=== PATIENT | female | born 1935 | race Caucasian/White ===

== ENCOUNTER 2016-06-26 05:55 | Day surgery (SDC) | payer OTHER ==
[~2016-06-26] VITALS: Ht 127 cm; Wt 48.3 kg
[~2016-06-26 05:55] MED LIST: ASPI1TAB73 PO; BENZ1CAP8 PO; CELE20TA PO; FURO1TAB62 PO; LEVO100T5 PO; LISI-519 PO; LOVA40TA PO; METO25TA3 PO; MIRT1TAB PO; POTA10CA PO
[2016-06-26] MEDS ORDERED: LACTATED RINGER'S 1000 ML IV SCH (06:15)
[2016-06-26] MEDS ORDERED: POVIDONE IODINE 5% (ANTISEPSIS KIT) 4 APPLICATIONS EACH NARE SCH (06:15)
[2016-06-26] MEDS ORDERED: NS 1000 ML IV SCH (06:15)
[2016-06-26] MEDS ORDERED: Hold AM Insulin & AM Hypoglycemic medications in diabetic patients XX PRN (06:15)
[2016-06-26] MEDS ORDERED: CHLORHEXIDINE GLUCONATE 2 % 1 PACK (2 CLOTHS) TOP SCH (06:15)
[2016-06-26] MEDS ORDERED: INSULIN HUMAN REGULAR 1,000 UNITS/10 ML VIAL SQ PRN (06:15)
[2016-06-26] MEDS ORDERED: METOPROLOL TARTRATE 25 MG TAB PO PRN (06:15)
[2016-06-26] MEDS ORDERED: MUPIROCIN 2% OINT 1 APPLIC/GM SYR NASAL SCH (06:15)
[2016-06-26] MEDS ORDERED: ceFAZolin 2 GM PREMIX 50 ML IV SCH (06:15)
[2016-06-26] MEDS ORDERED: SODIUM CHLORID 0.9% 500 ML IV SCH (06:15)
[2016-06-26] MEDS ORDERED: NO Heparin, Lovenox, Coumadin at least 12 hours prior to procedure. XX PRN (06:15)
[2016-06-26 06:44] VITALS: BP 128/84; PULSE 67; RESP 18; TEMP 98.2; O2SAT 100
[2016-06-26 06:48] LABS: AUTOMATED NEUTROPHIL # 3.5 TH/MM3 (1.8-7.7); BASOPHIL # 0.2 TH/MM3 (0-0.2); BASOPHIL % 3.4 % (0.0-2.0); EOSINOPHIL # 0.2 TH/MM3 (0-0.4); EOSINOPHIL % 3.2 % (0.0-4.0); HEMATOCRIT 43.1 % (35.0-46.0); HEMO FLAGS DIFF FINAL; LYMPHOCYTE # 1.7 TH/MM3 (1.0-4.8); MEAN CELL VOLUME 93.8 FL (80.0-100.0); MEAN CORPUSCULAR HGB CONC 33.1 % (32.0-36.0); MONO % 14.7 % (0.0-8.0); NEUT % 52.7 % (16.0-70.0); PLATELET COUNT 216 TH/MM3 (150-450); RED BLOOD COUNT 4.59 MIL/MM3 (4.00-5.30); RED CELL DISTRIBUTION WIDTH 15.5 % (11.6-17.2); WHITE BLOOD COUNT 6.6 TH/MM3 (4.0-11.0)
[2016-06-26] MEDS ORDERED: ZOFR4TAB PO (06:57)
[2016-06-26] MEDS ORDERED: BENZ100 PO (06:57)
[2016-06-26] MEDS ORDERED: SACU1TAB PO (06:57)
[2016-06-26] MEDS ORDERED: FLUT50SP EACH NARE (06:57)
[2016-06-26 07:02] LABS: APTT (PATIENT) 30.2 SEC (24.3-30.1); INTERNATIONAL NORMALIZED RATIO 1.1 RATIO; PROTHROMBIN TIME - PATIENT 12.4 SEC (9.8-11.6)
[2016-06-26 07:06] LABS: BICARBONATE 32.2 MEQ/L (21.0-32.0); POTASSIUM 3.5 MEQ/L (3.5-5.1)
[2016-06-26] MEDS ORDERED: VANCOMYCIN HCL 1000 MG VIAL ONE (07:08)
[2016-06-26] MEDS ORDERED: SODIUM CHLOR 0.9% 250 ML INJ 250 ML ONE (07:09)
[2016-06-26] MEDS ORDERED: ISOPROTERENOL HCL 1 MG/5 ML AMP ONE (07:39)
[2016-06-26] MEDS ORDERED: VANCOMYCIN 1000 MG/NS 250 ML IV SCH ×2 (08:15)
[2016-06-26] MEDS ORDERED: LIDOCAINE HCL 2% 50 ML VIAL ONE (08:19)
[2016-06-26] MEDS ORDERED: VANCOMYCIN 500 MG VIAL ONE (08:19)
[2016-06-26] MEDS ORDERED: PROPOFOL 200 MG/20 ML AMP IV ONE (10:00)
[2016-06-26] MEDS ORDERED: IOHEXOL 350 MG/ML 50 ML BTL (for EPS) OTHER ONE (10:00)
[2016-06-26] MEDS ORDERED: BACITRACIN OINT 0.9 GM PKT TOP ONE (12:00)
[2016-06-26] MEDS ORDERED: SODIUM CHLOR 0.9% 250 ML INJ 250 ML IV PRN (12:00)
[2016-06-26] MEDS ORDERED: METOCLOPRAMIDE HCL 10 MG/2 ML VIAL IV PRN (12:00)
[2016-06-26] MEDS ORDERED: LORazepam 2 MG/ML VIAL IV PRN (12:00)
[2016-06-26] MEDS ORDERED: ATROPINE SULFATE 1 MG/ML VIAL IV PRN (12:00)
[2016-06-26] MEDS ORDERED: SODIUM CHLORIDE 0.9% FLUSH 5 ML FLUSH IVF PRN (12:00)
[2016-06-26] MEDS ORDERED: ONDANSETRON ODT 4 MG TAB PO PRN (12:00)
[2016-06-26] MEDS ORDERED: oxyCODONE/ACETAMINOPHEN 5 MG/325 MG TAB PO PRN (12:00)
[2016-06-26] MEDS ORDERED: BENZONATATE 100 MG CAP PO PRN (12:00)
[2016-06-26] MEDS ORDERED: LIDOCAINE HCL 1% 50 ML VIAL INFIL PRN (12:00)
[2016-06-26] MEDS ORDERED: ONDANSETRON HCL 4 MG/2 ML VIAL IV PRN (12:00)
--- NOTE | 2016-06-26 12:31 | MA ---
cc: SELENA BELL M.D. DATE: 06/26/2016 PROCEDURE electrophysiology study and CS cannulation, repeat electrophysiology study on Isuprel infusion. INDICATION Mrs. Schroeder is a 80-year-old female with congestive heart failure, cardiomyopathy, to undergo electrophysiology study and possible biventricular pacer defibrillator insertion for sudden cardiac prevention and resynchronization therapy. The risks, the nature and the benefit of the procedure are clearly stated to her. The risks include pneumothorax, cardiac perforation, stroke and even . She understood and agreed to proceed. PROCEDURE After written informed consent was obtained, the patient was brought to the EP lab where she was prepped and draped in the usual sterile fashion. Conscious sedation was initiated and maintained throughout the procedure by anesthesiologist. Once sedation was verified, the right inguinal area was anesthetized with 2% Xylocaine. Using modified Seldinger technique, the right femoral vein was cannulated on four occasions, four guidewires were advanced. Over the wire 3, 5 and a 6-Montenegrin Hemaquet were advanced. Then under fluoroscopic guidance through the 5 and 6 Montenegrin Hemaquet, 4.5-Montenegrin Zachariah curved quadripolar electrophysiology catheter were advanced and placed around the His, upper right atrium, coronary sinus and right ventricular apex. Basic interval was measured, they were within normal limits. At this point atrial pacing protocol was performed. Atrial pacing protocol consists of incremental atrial pacing as well as program stimulation with 410 cycle length and up to one excess stimuli delivered. No tachyarrhythmia was induced. Then ventricular pacing protocol was performed. There was VA conduction, ventricular pacing protocol consists of incremental ventricular pacing as well as program stimulation with 410 cycle length and up to three excess stimuli delivered. No tachyarrhythmia was induced. Pacing from the coronary sinus showed no pre-excitation. Then Isuprel infusion was initiated, atrial and ventricular pacing protocol was repeated again, no tachyarrhythmia was induced. At that point because of low blood pressure, the procedure was complete. All catheters were removed. The patient is going to be kept on the table because of congestive heart failure class III, wide QRS, EF 25% on optimal medical therapy for over 3 months. The patient will be kept on the table and a biventricular pacer defibrillator will be implanted for sudden prevention and resynchronization therapy. No incident report. The patient tolerated the procedure. Blood loss was minimal. 1. Electrocardiogram. At baseline the patient was in sinus. Postprocedure electrocardiogram was unchanged. 2. Basic interval. Base cycle length was 840, AH at 130 and HV around 70 milliseconds. 3. Atrial pacing protocol. Wenckebach of the node was around 240. ERP of 600-280 milliseconds. No tachyarrhythmia was induced. 4. Ventricular pacing protocol. There was VA conduction. No tachyarrhythmia was induced. CONCLUSION Negative electrophysiology study for supraventricular tachyarrhythmia, COMMENT AND RECOMMENDATION As mentioned before the patient is going to be kept on the table. Biventricular pacer defibrillator will be implanted for sudden prevention, primary prevention and resynchronization therapy. MD MONROE Britt/DILLON /11:54 AM /12:20 PM
--- NOTE | 2016-06-26 13:24 | RADRPT ---
EXAM DATE/TIME: 06/26/2016 12:37 [place] COMPARISON: CHEST SINGLE AP, April 19, 2016, 15:11. INDICATIONS : Post Pacemaker MEDICAL HISTORY : Hypertension. SURGICAL HISTORY : None. ENCOUNTER: Initial ACUITY: 1 day PAIN SCORE: 8/10 LOCATION: Bilateral chest FINDINGS: Single view chest demonstrates interval placement of a dual-lead pacemaker plus AICD leads. The heart is moderately enlarged. Lungs are free of significant congestion. There is no pneumothorax. CONCLUSION: Status post placement of AICD/pacemaker No evidence of pneumothorax or acute congestion. Danilo Short MD on June 26, 2016 at 13:20 Board Certified Radiologist. This report was verified electronically.
[2016-06-26] MEDS: FUROSEMIDE 40 MG TAB PO SCH (13:52)
[2016-06-26] MEDS: PRAVASTATIN SOD 40 MG TAB PO SCH (13:52)
--- NOTE | 2016-06-26 14:07 | MP ---
cc: EUGENIA STEVEN M.D., HANSCY M.D. DATE OF SURGERY: 06/26/2016 PROCEDURE Biventricular pacer defibrillator insertion and device testing. INDICATION Mrs. Schroeder is an 80-year-old female with congestive heart failure, cardiomyopathy, ejection fraction around 20-25%, cardiomyopathy, wide QRS, on optimal medical treatment for over three months and negative electrophysiology study to undergo biventricular pacer defibrillator insertion for resynchronization therapy and sudden primary prevention. The risks, the nature and the benefit of the procedure were clearly stated to her. The risks include pneumothorax, cardiac perforation, stroke and even . She understood and agreed to proceed. DETAILS OF PROCEDURE As written informed consent was obtained prior to electrophysiology study, the patient was kept on the table where she was prepped and draped in the usual sterile fashion. Conscious sedation was initiated and maintained throughout the procedure by the anesthesiologist. Once sedation was verified, the left infraclavicular area was anesthetized with 2% Xylocaine. Using modified Seldinger technique, the left subclavian vein was cannulated on three occasions and three guidewires were advanced. Then using a #11 blade scalpel, a 3 cm incision was made two fingerbreadths below the left clavicle. This incision was taken down to the fascial layer using Bovie cautery and blunt dissection. Into the inferior medial direction, a device pocket was dissected. Then the wire was dissected into the pocket. A 2-0 Vicryl suture was placed around the wire to prevent back bleeding. At this point over the lateral wire an 8-Taiwanese dilator and introducer was advanced. As the dilator and wire were removed, an active fixation right ventricular pacing and sensing defibrillatory lead was advanced. After adequate pacing and sensing thresholds were obtained, the lead was secured in the pocket using 2-0 Ethibond suture. Then over the medial wire, a 7-Taiwanese dilator and introducer was advanced. As the dilator and wire were removed, an active fixation right atrial pacing and sensing lead was advanced. After adequate pacing and sensing thresholds were obtained, the lead was secured in the pocket using 2-0 Ethibond suture. Then over the remaining wire, a 9-Taiwanese dilator and introducer was advanced. As the dilator and wire were removed, a CS cannulation sheath was advanced. Through the sheath a quadripolar steerable catheter was advanced. After multiple attempts the coronary sinus was cannulated. CS venography showed an adequate posterolateral branch. Using a Prowater wire the posterolateral branch was cannulated and the lead was advanced over the wire. After adequate pacing and sensing thresholds were obtained, the peel-away introducer was removed and the cutter introducer was removed and the lead was secured in the pocket using 2-0 Ethibond suture. At that point the pocket was copiously irrigated using antibiotic solution. The leads were connected to the generator and placed into the pocket. I did proceed with device testing. Initial induction consisted of T-wave shock which induced ventricular fibrillation which was adequately detected and treated by the ICD generator delivering a 20 joule defibrillatory shock converting the patient back into sinus rhythm. Shocking impedance 37 ohms, charge time 4 seconds. At that point NIPS was complete. I did proceed with wound closure. The deep fascial layer was approximated using 2-0 Vicryl suture in a continuous fashion. The subcutaneous layer was approximated using 2-0 Vicryl suture in a continuous fashion. The subcuticular layer was approximated using 2-0 Vicryl suture in a continuous fashion. Dermabond adhesive was applied to the wound followed by a sterile pressure dressing. There was no complication. The patient tolerated the procedure. Blood loss minimal. IMPLANTED HARDWARE The implanted biventricular pacer defibrillator is a Biotronik model 362831, serial number [id number]. The right atrial pacing and sensing lead is a Biotronik model 157820, serial number [id number]. The right ventricular pacing sensing defibrillatory lead is a Biotronik model 834253, serial number [id number]. The left ventricular pacing and sensing lead is a Medtronic model 4398-88, serial number [id number]. THRESHOLDS The right atrial pacing threshold in the bipolar mode was 1.8 volts at 0.5 milliseconds, lead impedance 520 ohms, P-wave at 1.5 millivolts. The right ventricular pacing threshold in the bipolar mode was 0.5 volts at 0.5 milliseconds, lead impedance 250 ohms, R-wave at 22.6 millivolts. The left ventricular pacing threshold in the bipolar mode was 2.1 volts at 0.5 milliseconds, lead impedance 230 ohms. The right ventricular defibrillatory threshold was less than or equal to 20 joules. Shocking impedance 37 ohms, charge time 4 seconds. SETTINGS The device in set in a DDD 60, upper limit 120 beats per minute. AV delay and paced at 160 and sensed at 140, LV first by 40 milliseconds. The defibrillatory portion is for two zones. One zone for ventricular tachycardia between 160 and 240 beats per minute. Initial therapy consists of one burst of ATP, one RAMP, 81%, 10 pause, 10 milliseconds decremental, followed by 20 then 30 and all subsequent shocks at 40 joule defibrillatory shock. The second zone is for ventricular fibrillation above 240 beats per minute, the first therapy at 30 and all subsequent shocks at 40 joule defibrillatory shock. CONCLUSIONS Successful biventricular pacer defibrillator insertion and device testing. COMMENT/RECOMMENDATION The patient will be transferred to the telemetry unit. She will be observed and once stable can be discharged home. Otf Aranda MD HS/TALYA /11:46 AM /1:40 PM
[2016-06-26] MEDS: ceFAZolin 2 GM PREMIX 50 ML IV SCH ×2 (15:38→23:54)
[2016-06-26] MEDS: oxyCODONE/ACETAMINOPHEN 5 MG/325 MG TAB PO PRN ×2 (16:10→21:57)
[2016-06-26 21:00] VITALS: PULSE 70
[2016-06-26] MEDS ORDERED: SACUBITRIL/VALSARTAN 24 MG-26 MG TAB PO SCH (21:00)
[2016-06-26] MEDS: SODIUM CHLORIDE 0.9% FLUSH 5 ML FLUSH IVF SCH (21:57)
[2016-06-26] MEDS: METOPROLOL TARTRATE 25 MG TAB PO SCH (21:57)
[2016-06-26 22:00] VITALS: PULSE 68
[2016-06-26] MEDS: SACUBITRIL/VALSARTAN 49 MG-51 MG TAB PO SCH (22:12)
[2016-06-26 23:00] VITALS: PULSE 64
[2016-06-27] VITALS (11 sets, daily range): BP systolic 95–113; BP diastolic 44–63; PULSE 60–68; RESP 16–20; TEMP 97.5–98.8; O2SAT 94–97
[2016-06-27] MEDS ORDERED: LEVOTHYROXINE SODIUM 100 MCG TAB PO SCH (06:00)
[2016-06-27 06:11] LABS: APTT (PATIENT) 30.4 SEC (24.3-30.1); INTERNATIONAL NORMALIZED RATIO 1.2 RATIO; PROTHROMBIN TIME - PATIENT 12.9 SEC (9.8-11.6)
[2016-06-27] MEDS: oxyCODONE/ACETAMINOPHEN 5 MG/325 MG TAB PO PRN ×2 (06:19→13:34)
[2016-06-27] MEDS: ceFAZolin 2 GM PREMIX 50 ML IV SCH (08:47)
[2016-06-27] MEDS: FUROSEMIDE 40 MG TAB PO SCH (08:47)
[2016-06-27] MEDS: PRAVASTATIN SOD 40 MG TAB PO SCH (08:47)
[2016-06-27] MEDS: METOPROLOL TARTRATE 25 MG TAB PO SCH (08:48)
[2016-06-27] MEDS: SODIUM CHLORIDE 0.9% FLUSH 5 ML FLUSH IVF SCH (08:49)
[2016-06-27] MEDS ORDERED: ASPIRIN EC 81 MG TABEC PO SCH (09:00)
[2016-06-27] MEDS ORDERED: POTASSIUM CHLORIDE 10 MEQ CAP PO SCH (09:00)
[2016-06-27] MEDS: SACUBITRIL/VALSARTAN 49 MG-51 MG TAB PO SCH (09:00)
--- NOTE | 2016-06-27 15:18 | HHI.PR ---
Subjective Remarks Feeling ok Objective Vital Signs Date Time Temp Pulse Resp B/P Pulse Ox O2 Delivery O2 Flow Rate FiO2 06/27/16 08:02 97.5 66 17 113/63 95 06/27/16 08:00 68 06/27/16 07:30 97.5 66 16 113/63 95 06/27/16 07:00 66 06/27/16 06:00 65 06/27/16 05:00 67 06/27/16 04:00 64 06/27/16 04:00 98.6 64 17 95/44 94 06/27/16 04:00 98.6 64 20 95/46 94 06/27/16 03:00 65 06/27/16 02:00 62 06/27/16 01:00 64 06/27/16 00:00 98.8 60 18 111/62 96 06/27/16 00:00 60 06/27/16 00:00 98.8 60 18 111/62 97 06/26/16 23:00 64 06/26/16 22:00 68 06/26/16 21:00 70 I/O 06/26/16 06/26/16 06/26/16 06/27/16 06/27/16 06/27/16 07:00 15:00 23:00 07:00 15:00 23:00 Intake Total 300 ml Output Total 500 ml Balance -200 ml Intake Oral 250 ml IV Total 50 ml Output Urine Total 500 ml # Bowel Movements 0 Result Diagram: 06/26/16 0630 06/26/16 0630 Imaging Alert, fully oriented Lungs: ventilated Heart: S1, S2 regular, no gallop Abdomen: soft, no mass Ext: no edema Clean left infraclavicular surgical wound Last Impressions Chest X-Ray 06/26/16 0000 Signed Impressions: Service Date/Time: Sunday, June 26, 2016 12:37 - CONCLUSION: Status post placement of AICD/pacemaker No evidence of pneumothorax or acute congestion. Danilo Short MD Current Medications Medications (Trade) Dose Ordered Sig/Onofre Route Start Time Stop Time Status Last Admin Miscellaneous Information Hold AM Insulin & ... UNSCH PRN XX 06/26/16 06:15 06/30/16 06:14 Miscellaneous Information NO Heparin, Loven... UNSCH PRN XX 06/26/16 06:15 06/30/16 06:14 (NS 1000 ml Inj) 1,000 ml @ 30 mls/hr Q24H IV 06/26/16 06:15 (Percocet 5-325 Mg) 1 tab Q4H PRN PO 06/26/16 12:00 06/27/16 13:34 (Percocet 5-325 Mg) 2 tab Q4H PRN PO 06/26/16 12:00 (Atropine Inj) 0.5 mg UNSCH PRN IV 06/26/16 12:00 (Reglan Inj) 10 mg Q4H PRN IV 06/26/16 12:00 (Zofran Inj) 4 mg Q4H PRN IV 06/26/16 12:00 (NS Flush) 2 ml BID IVF 06/26/16 21:00 06/26/16 21:57 (NS Flush) 2 ml UNSCH PRN IVF 06/26/16 12:00 (Ecotrin Ec) 81 mg DAILY PO 06/27/16 09:00 06/27/16 08:47 (Tessalon) 100 mg TID PRN PO 06/26/16 12:00 (Lasix) 40 mg DAILY PO 06/26/16 12:00 06/27/16 08:47 (Synthroid) 100 mcg DAILY@0600 PO 06/27/16 06:00 06/27/16 06:18 (Pravachol) 40 mg DAILY PO 06/26/16 12:00 06/27/16 08:47 (Lopressor) 25 mg BID PO 06/26/16 21:00 06/27/16 08:48 (KCl) 10 meq DAILY PO 06/27/16 09:00 06/27/16 08:47 (Zofran Odt) 4 mg Q6HR PRN PO 06/26/16 12:00 (Entresto 49-51 Mg) 1 tab BID PO 06/26/16 21:00 06/26/16 22:12 Assessment and Plan Problem List: (1) Chronic systolic CHF (congestive heart failure) Status: Acute Plan: On optimal medical management (2) Hypertension Status: Acute Plan: SBP 113 (3) Syncope Status: Acute Plan: No new episode reported (4) Biventricular automatic implantable cardioverter defibrillator in situ Status: Acute Plan: Device well functioning clean surgical wound Can be DH Follow up as scheduled Otf Aranda MD Jun 27, 2016 15:18
[2016-06-27] MEDS ORDERED: METO50TA PO (15:22)
[2016-06-27] MEDS ORDERED: NORC5TAB PO (15:22)
[2016-06-27] MEDS ORDERED: CEPH-460 PO (15:22)
--- NOTE | 2016-06-27 17:04 | EKG ---
Date Performed: 06/26/2016 Time Performed: 06:52:46 PTAGE: 80 years EKG: Sinus rhythm with PVC(s) Left axis deviation Left bundle branch block Abnormal ECG PREVIOUS TRACING : 04/19/2016 15.21.02 DOCTOR: Neri Frost Interpretating Date/Time 06/27/2016 17:04:26
--- NOTE | 2016-06-27 17:08 | EKG ---
Date Performed: 06/26/2016 Time Performed: 16:27:28 PTAGE: 80 years EKG: Sinus rhythm with PVC(s) Left axis deviation. Left bundle branch block. Prolonged corrected QT interval Abnormal ECG PREVIOUS TRACING : 06/26/2016 06.52.46 DOCTOR: Neri Frost Interpretating Date/Time 06/27/2016 17:06:42
--- NOTE | 2016-06-27 17:08 | EKG ---
Date Performed: 06/27/2016 Time Performed: 07:32:50 PTAGE: 80 years EKG: Demand pacing Pacemaker rhythm - no further analysis Prolonged corrected QT interval Abnorm al ECG PREVIOUS TRACING : 06/26/2016 16.27 DOCTOR: Neri Frost Interpretating Date/Time 06/27/2016 17:06:56
== END 2016-06-27 16:47 | disposition home or self-care (01) ==
LOC: HDOC 05:55 → HDIC 05:55 → HCIS 21:04 → HDOC 06-27 16:47
PROVIDERS: ATTEND Internal Medicine Interventional Cardiology
DX: I11.0 Hypertensive heart disease with heart failure (principal); I50.9 Heart failure, unspecified; I42.9 Cardiomyopathy, unspecified; I25.10 Atherosclerotic heart disease of native coronary artery without angina pectoris; I44.7 Left bundle-branch block, unspecified; I34.0 Nonrheumatic mitral (valve) insufficiency; E03.9 Hypothyroidism, unspecified; Z79.82 Long term (current) use of aspirin
CPT/HCPCS: 33225; 33249; 71010; 80048; 84703; 85025; 85610; 85730; 86850; 86900; 86901; 93005; 93620; 93623; C1730; C1769; C1779; C1882; C1895; C1900; J0690; J3010; J3370; J7050; Q9967

== ENCOUNTER 2016-09-16 14:52 | Inpatient (IN) | payer OTHER, MEDICARE ==
[2016-09-16] VITALS (8 sets, daily range): BP systolic 112–136; BP diastolic 44–75; PULSE 61–74; RESP 16–27; TEMP 98.2–100.6; O2SAT 95–97
[~2016-09-16] VITALS: Ht 157.5 cm; Wt 54.2 kg
[~2016-09-16 14:52] MED LIST changes: +BENZ100 PO; -BENZ1CAP8 PO; -CELE20TA PO; +CEPH-460 PO; +FLUT50SP EACH NARE; -LISI-519 PO; -METO25TA3 PO; +METO50TA PO; -MIRT1TAB PO; +NORC5TAB PO; +SACU1TAB PO; +ZOFR4TAB PO
[2016-09-16] MEDS ORDERED: SODIUM CHLOR 0.9% 1000 ML INJ 1,000 ML IV ONE ×2 (15:03)
[2016-09-16] MEDS ORDERED: SODIUM CHLOR 0.9% 1000 ML INJ 100 ML IV ONE (15:03)
[2016-09-16 15:32] LABS: AUTOMATED NEUTROPHIL # 8.8 TH/MM3 (1.8-7.7); BASOPHIL # 0.1 TH/MM3 (0-0.2); BASOPHIL % 0.5 % (0.0-2.0); HEMATOCRIT 39.7 % (35.0-46.0); LYMPH % 7.9 % (9.0-44.0); MEAN CELL VOLUME 95.7 FL (80.0-100.0); MEAN CORPUSCULAR HEMOGLOBIN 32.3 PG (27.0-34.0); MEAN CORPUSCULAR HGB CONC 33.8 % (32.0-36.0); NEUT % 71.6 % (16.0-70.0); PLATELET COUNT 174 TH/MM3 (150-450); RED BLOOD COUNT 4.15 MIL/MM3 (4.00-5.30); RED CELL DISTRIBUTION WIDTH 16.9 % (11.6-17.2); WHITE BLOOD COUNT 12.3 TH/MM3 (4.0-11.0)
[2016-09-16 15:34] LABS: HEMO FLAGS AUTO DIFF
[2016-09-16 15:37] LABS: BACTERIA, URINE RARE /hpf; BLOOD, URINE NEG (NEG); GLUCOSE,URINE NEG (NEG); HYALINE CAST, URINE 2 /lpf (RARE); KETONE, URINE NEG (NEG); MUCUS URINE FEW /lpf (OCC); NITRITE,URINE NEG (NEG); PH, URINE 5.5 (5.0-8.5); URINE COLOR YELLOW (YELLW/STRAW)
[2016-09-16 15:38] LABS: COMMENT (UR) CATH-CULTURE IND; CULTURE IF INDICATED CATH CULTURE IND
--- NOTE | 2016-09-16 16:04 | PD ---
HPI Chief Complaint: General Weakness Time Seen by Provider: 14:57 Travel History International Travel<30 days: No Contact w/Intl Traveler<30days: No Traveled to known affect area: No History of Present Illness HPI 81-year-old female came to the emergency room with history of generalized weakness and not feeling well. Upon asking patient said she has not been feeling well for past 3-4 days. She was brought in by EMS and her daughter called 911. Upon arrival her temperature was 100.8. She says she has been vomiting but no diarrhea. However she did not vomit today or yesterday. Her appetite has been diminished. She denied of any pain anywhere. No history of cough. Vital signs otherwise was within normal limits. [facility] Past Medical History Narrative Medical List of her past medical, surgical, social and family history was reviewed from the nursing note. Anxiety: Yes Depression: Yes Heart Rhythm Problems: No Cancer: No Cardiac Catheterization: Yes (3 times) Cardiovascular Problems: Yes (HTN) High Cholesterol: Yes Chest Pain: No Congestive Heart Failure: Yes Cerebrovascular Accident: Yes (LBB, CHF) Diabetes: No Diminished Hearing: No Endocrine: Yes Gastrointestinal Disorders: No GERD: Yes Glaucoma: No Genitourinary: No Hepatitis: No Hiatal Hernia: Yes Hypertension: Yes Immune Disorder: No Musculoskeletal: No Neurologic: No Psychiatric: Yes Reproductive: No Respiratory: No Integumentary: No Thyroid Disease: Yes (HYPOTHYROID) Tetanus Vaccination: Unknown Influenza Vaccination: Yes ?: Not Menopausal: Yes : 11 Para: 11 Past Surgical History AICD: Yes Cholecystectomy: Yes Eye Surgery: Yes (LEFT CATARACT REMOVED) Gynecologic Surgery: Yes (HYSTERECTOMY) Hysterectomy: Yes Neurologic Surgery: No Pacemaker: Yes Other Surgery: Yes (SHOULDER AND KNEE SURGERIES) Social History Alcohol Use: No Tobacco Use: No (QUIT IN 1988) Substance Use: No Allergies-Medications (Allergen,Severity, Reaction): Coded Allergies: Flounder (Unverified Allergy, Mild, 04/19/16) Uncoded Allergies: FISH/FLOUNDER (Allergy, Severe, SYNCOPE, 07/07/08) Comments List of her allergies reviewed from the nursing note. Reported Meds & Prescriptions Reported Meds & Active Scripts Active Metoprolol Tartrate 50 Mg Tab 50 Mg PO BID Reported Zofran (Ondansetron HCl) 4 Mg Tab 4 Mg PO Q6HR PRN Tessalon Perles (Benzonatate) 100 Mg Cap 100 Mg PO TID PRN Fluticasone Nasal [place] 50 Mcg/Act Naspr 50 Mcg EACH NARE DAILY 50 mcg/spray Entresto (Sacubitril-Valsartan) 24-26 Mg Tab 1 Tab PO BID Jolly Aspirin EC Low Dose (Aspirin) 81 Mg Tabdr 81 Mg PO DAILY Lasix (Furosemide) 20 Mg Tab 40 Mg PO DAILY Lovastatin 40 Mg Tab 40 Mg PO DAILY Potassium Chloride ER (Potassium Chloride) 10 Meq Cap 10 Meq PO DAILY Take with food Levothyroxine (Levothyroxine Sodium) 100 Mcg Tab 100 Mcg PO DAILY Narrative Medication List of her home medications reviewed from the nursing note. Review of Systems Except as stated in HPI: all other systems reviewed are Neg Physical Exam Narrative GENERAL: Awake, alert, elderly, moderate distress SKIN: Focused skin assessment warm/dry. HEAD: Atraumatic. Normocephalic. EYES: Pupils equal and round. No scleral icterus. No injection or drainage. ENT: No nasal bleeding or discharge. Dry mucous membrane NECK: Trachea midline. No JVD. CARDIOVASCULAR: Regular rate and rhythm. No murmur appreciated. RESPIRATORY: No accessory muscle use. Clear to auscultation. Breath sounds equal bilaterally. GASTROINTESTINAL: Abdomen soft, non-tender, nondistended. Hepatic and splenic margins not palpable. MUSCULOSKELETAL: No obvious deformities. No clubbing. No cyanosis. No edema. NEUROLOGICAL: Awake and alert. No obvious cranial nerve deficits. Motor grossly within normal limits. Normal speech. PSYCHIATRIC: Appropriate mood and affect; insight and judgment normal. Data Data Last Documented VS Vital Signs Date Time Temp Pulse Resp B/P Pulse Ox O2 Delivery O2 Flow Rate FiO2 09/16/16 20:00 74 16 121/75 97 09/16/16 18:30 Nasal Cannula 2 09/16/16 17:38 98.9 Orders Electrocardiogram (09/16/16 ) Complete Blood Count With Diff (09/16/16 15:03) Comprehensive Metabolic Panel (09/16/16 15:03) Lactic Acid Sepsis Protocol (09/16/16 15:03) Urinalysis - C+S If Indicated (09/16/16 15:03) Blood Culture (09/16/16 15:03) Chest, Single Ap (09/16/16 15:03) Blood Glucose (09/16/16 15:03) Ecg Monitoring (09/16/16 15:03) Iv Access Insert/Monitor (09/16/16 15:03) Oximetry (09/16/16 15:03) Oxygen Administration (09/16/16 15:03) Sodium Chlor 0.9% 1000 Ml Inj (Ns 1000 M (09/16/16 15:03) Sodium Chlor 0.9% 1000 Ml Inj (Ns 1000 M (09/16/16 15:03) Sodium Chlor 0.9% 1000 Ml Inj (Ns 1000 M (09/16/16 15:03) Urine Culture (09/16/16 15:17) Ceftriaxone Inj (Rocephin Inj) (09/16/16 16:15) Ct Abd/Pel W Iv Contrast(Rout) (09/16/16 ) Piperacil-Tazo 4.5 Gm Premix (Zosyn 4.5 (09/16/16 16:30) Iohexol 350 Inj (Omnipaque 350 Inj) (09/16/16 17:34) Vancomycin Inj (Vancomycin Inj) (09/16/16 18:30) Albuterol Neb (Albuterol Neb) (09/16/16 18:45) Admit Order (Ed Use Only) (09/16/16 20:00) Biliary Quant (W/O Cck) (09/16/16 ) Labs Laboratory Tests Test 09/16/16 09/16/16 09/16/16 15:10 15:15 15:17 Sodium Level 135 MEQ/L Potassium Level 4.1 MEQ/L Chloride Level 100 MEQ/L Carbon Dioxide Level 28.0 MEQ/L Anion Gap 7 MEQ/L Blood Urea Nitrogen 15 MG/DL Creatinine 0.82 MG/DL Estimat Glomerular Filtration 67 ML/MIN Rate Random Glucose 120 MG/DL Calcium Level 8.8 MG/DL Total Bilirubin 2.7 MG/DL Aspartate Amino Transf 53 U/L (AST/SGOT) Alanine Aminotransferase 65 U/L (ALT/SGPT) Alkaline Phosphatase 115 U/L Total Protein 6.6 GM/DL Albumin 3.2 GM/DL White Blood Count 12.3 TH/MM3 Red Blood Count 4.15 MIL/MM3 Hemoglobin 13.4 GM/DL Hematocrit 39.7 % Mean Corpuscular Volume 95.7 FL Mean Corpuscular Hemoglobin 32.3 PG Mean Corpuscular Hemoglobin 33.8 % Concent Red Cell Distribution Width 16.9 % Platelet Count 174 TH/MM3 Mean Platelet Volume 8.2 FL Neutrophils (%) (Auto) 71.6 % Lymphocytes (%) (Auto) 7.9 % Monocytes (%) (Auto) 20.0 % Eosinophils (%) (Auto) 0.0 % Basophils (%) (Auto) 0.5 % Neutrophils # (Auto) 8.8 TH/MM3 Lymphocytes # (Auto) 1.0 TH/MM3 Monocytes # (Auto) 2.5 TH/MM3 Eosinophils # (Auto) 0.0 TH/MM3 Basophils # (Auto) 0.1 TH/MM3 CBC Comment AUTO DIFF Differential Total Cells 100 Counted Neutrophils % (Manual) 70 % Band Neutrophils % 4 % Lymphocytes % 6 % Monocytes % 20 % Neutrophils # (Manual) 9.1 TH/MM3 Differential Comment FINAL DIFF MANUAL Toxic Vacuolation PRESENT Platelet Estimate NORMAL Platelet Morphology Comment ENLARGED Ovalocytes 1+ Lactic Acid Level 1.5 mmol/L Urine Color YELLOW Urine Turbidity CLEAR Urine pH 5.5 Urine Specific [place] 1.015 Urine Protein TRACE mg/dL Urine Glucose (UA) NEG mg/dL Urine Ketones NEG mg/dL Urine Occult Blood NEG Urine Nitrite NEG Urine Bilirubin NEG Urine Urobilinogen 2.0 MG/DL Urine Leukocyte Esterase TRACE Urine RBC 1 /hpf Urine WBC 4 /hpf Urine Bacteria RARE /hpf Urine Hyaline Casts 2 /lpf Urine Mucus FEW /lpf Microscopic Urinalysis Comment CATH-CULTURE IND MDM Medical Decision Making Medical Screen Exam Complete: Yes Emergency Medical Condition: Yes Medical Record Reviewed: Yes Interpretation(s) Twelve-lead EKG was reviewed by me. Paced rhythm. Heart rate of 66 bpm. Differential Diagnosis Pneumonia, UTI, sepsis Narrative Course 4:03 PM CBC is back and patient has slight leukocytosis. She has a UTI as well. Awaiting for the chemistry to come back. 6:29 PM patient's manual differential shows toxic granulocytes and vacuolated bodies suggesting possibly severe bacterial infection. I started this patient on IV Zosyn and vancomycin. She was given IV fluid as per sepsis protocol in the beginning. CAT scan of the abdomen was ordered which has been reported as dilated common bile duct as well as an inferior pole splenic infarct. I've placed a call out for the radio equipment repairer and the hospitalist for admission. 6:57 PM discussed the case with the radio equipment repairer Dr. Bartholomew and as per him a HIDA scan should be done since an MRCP cannot be done given patient's pacemaker status. He agreed that the patient should be admitted and to the ICU since there is a potential of her getting worse. He agreed with the antibiotic. I went and discussed this with the family. Patient has 3 daughters in the room currently. Patient has been coughing and as per them the coughing started just half an hour ago. She continues to look uncomfortable and in distress. My concern is that there is a chance she may potentially worsen hemodynamically and from respiratory standpoint. She does have history of congestive heart failure and she received fluid as per sepsis protocol. I discussed the case with the hospitalist who wanted the case to be run by the can filling machine operator and see if they would accept the case. Awaiting for the can filling machine operator to call back. 8 PM case was discussed with the can filling machine operator Dr. Juarez who has accepted the patient. Critical Care Narrative Aggregate critical care time was 45 minutes. Time to perform other separately billable procedures was not included in the critical care time. My time did not include minutes spent treating any other patients simultaneously or on activities that did not directly contribute to the patient's treatment. The services I provided to this patient were to treat and/or prevent clinically significant deterioration that could result in: Sepsis, sepsis protocol, possible cholangitis I provided critical care services requiring my management, as noted below: Chart data review, documentation time, medication orders and management, vital sign assessments/reviewing monitor data, ordering and reviewing lab tests, ordering and interpreting/reviewing x-rays and diagnostic studies, care of the patient and discussion of the patient with the admitting physicians. Procedures EKG Prior to Arrival: No Physician Communication Physician Communication Dr. Bartholomew, Dr. Juarez Diagnosis Primary Impression: Sepsis Qualified Code: A41.9 - Sepsis, due to unspecified organism Additional Impressions: UTI (urinary tract infection) Qualified Code: N39.0 - Urinary tract infection without hematuria, site unspecified questionable cholangitis Admitting Information Admitting Physician Requests: Narinder Rand MD Sep 16, 2016 16:04
[2016-09-16 16:06] LABS: BANDS 4 % (0-6); NEUTROPHIL # MANUAL DIFF 9.1 TH/MM3 (1.8-7.7); POLYS (SEG NEUTROPHILS) 70 % (16-70); TOXIC VACUOLATION PRESENT (NONE SEEN); WBC DIFF SAMPLE 100
[2016-09-16 16:07] LABS: OVALOCYTES 1+ (NORMAL)
[2016-09-16 16:09] LABS: PLATELET ESTIMATE SMEAR NORMAL (NORMAL); PLATELET MORPHOLOGY ENLARGED (NORMAL); SCAN/DIFF FINAL DIFF MANUAL
[2016-09-16 16:11] LABS: ALT (GPT) 65 U/L (10-53); ANION GAP 7 MEQ/L (5-15); AST (GOT) 53 U/L (15-37); BLOOD UREA NITROGEN 15 MG/DL (7-18); CHLORIDE 100 MEQ/L (98-107); GLOMERULAR FILTRATION RATE 67 ML/MIN (>89); POTASSIUM 4.1 MEQ/L (3.5-5.1); SODIUM (NA) 135 MEQ/L (136-145)
[2016-09-16 16:14] LABS: ALKALINE PHOSPHATASE 115 U/L (45-117); TOTAL BILIRUBIN ADULT 2.7 MG/DL (0.2-1.0)
[2016-09-16] MEDS ORDERED: cefTRIAXone INJ 1,000 MG in SODIUM CHLORIDE 0.9% INJ 100 ML IV ONE (16:15)
--- NOTE | 2016-09-16 16:20 | RADRPT ---
EXAM DATE/TIME: 09/16/2016 15:21 [facility] COMPARISON: CHEST SINGLE AP, June 26, 2016, 12:37. INDICATIONS : Cough and congestion for the past few days. MEDICAL HISTORY : Hypertension. SURGICAL HISTORY : Pacemaker. ENCOUNTER: Initial ACUITY: 3 days PAIN SCORE: 0/10 LOCATION: Bilateral chest FINDINGS: Moderate severity cardiomegaly similar to prior. The central bronchopulmonary markings remain fairly well delineated. There is elevation of the left hemidiaphragm. Pacer device and pacer/AICD leads i n place. CONCLUSION: No definite infiltrates seen. Increased prominence the elevation of the left hemidiaphragm. Stable cardiomegaly. John Quiles MD on September 16, 2016 at 16:17 Board Certified Radiologist. This report was verified electronically.
[2016-09-16] MEDS ORDERED: PIPERACIL-TAZO 4.5 GM PREMIX 100 ML IV ONE (16:30)
[2016-09-16] MEDS ORDERED: IOHEXOL 350 MG/ML 10 ML VIAL (for RAD DIAG) IV ONE (17:34)
--- NOTE | 2016-09-16 18:26 | RADRPT ---
EXAM DATE/TIME: 09/16/2016 17:14 [facility] COMPARISON: CT ABDOMEN & PELVIS W CONTRAST, September 29, 2015, 21:00. INDICATIONS : Loss of appetite, general weakness. IV CONTRAST: 85 cc Omnipaque 350 (iohexol) IV ORAL CONTRAST: No oral contrast ingested. RADIATION DOSE: 12.62 CTDIvol (mGy) MEDICAL HISTORY : Hypertension. Hernia, hiatal. SURGICAL HISTORY : Cholecystectomy. Hysterectomy.Pacemaker. ENCOUNTER: Initial ACUITY: 1 day PAIN SCALE: 5/10 LOCATION: Bilateral abdomen. TECHNIQUE: Volumetric scanning of the abdomen and pelvis was performed. Using automated exposure control and ad justment of the mA and/or kV according to patient size, radiation dose was kept as low as reasonably achievable to obtain optimal diagnostic quality images. FINDINGS: There is mild amount of ascites in the left upper quadrant underneath the hemidiaphragm, smaller than on prior CT in September 2015. Some fluid tracks down the right paracolic gutter. There is also layeri ng free fluid in the cul-de-sac measuring up to 2.9 cm in size. LOWER LUNGS: The visualized lower lungs are clear. Tiny left pleural effusion. LIVER: Homogeneous density without lesion. There is no dilation of the intrahepatic biliary tree. The comm on bile duct is prominent measuring 9 mm; this represents a change from prior CT scan. Hemoclips in the jennifer from prior cholecystectomy. SPLEEN: Scattered calcifications characteristic of granulomata, unchanged from prior. There is a hypodensity in the inferior pole of the spleen with wedge-shaped margination which is a new finding from prior e xam and suggests possible splenic infarct. PANCREAS: Within normal limits. KIDNEYS: Normal in size and shape. There is no mass, stone or hydronephrosis. Bilateral renal cysts, the lar gest in the upper pole on the left side measuring 1.6 cm, stable from prior. ADRENAL GLANDS: Within normal limits. VASCULAR: There is no aortic aneurysm. BOWEL/MESENTERY: No dilated loops of small or large bowel. No evidence of free intraperitoneal gas. There is some mi ld induration of the central mesentery.. ABDOMINAL WALL: Within normal limits. RETROPERITONEUM: There is no lymphadenopathy. BLADDER: No wall thickening or mass. REPRODUCTIVE: Within normal limits. INGUINAL: There is no lymphadenopathy or hernia. MUSCULOSKELETAL: The osseous structures are osteopenic. Moderate curvature of the lumbar spine convex towards the lef t, stable. CONCLUSION: 1. The common bile duct is dilated up to 9 mm; this represents a change when compared to prior CT sca n. May consider performing hepatobiliary tract scan to evaluate for evidence of functional obstructi on. 2. There is a new wedge-shaped hypodensity in the inferior pole of the spleen suggesting splenic infa rction. 3. Ascites in the left upper abdomen, right lower quadrant and in the pelvis. John Quiles MD on September 16, 2016 at 18:16 Board Certified Radiologist. This report was verified electronically.
[2016-09-16] MEDS ORDERED: VANCOMYCIN INJ 1,000 MG in SODIUM CHLOR 0.9% 250 ML INJ 250 ML IV ONE (18:30)
[2016-09-16] MEDS ORDERED: RESP: ALBUTEROL 2.5 MG/3 ML NEB (SCH) NEB ONE (18:45)
[2016-09-16] MEDS: SODIUM CHLOR 0.9% 1000 ML INJ 1,000 ML IV SCH (20:08)
[2016-09-16] MEDS ORDERED: BENZONATATE 100 MG CAP PO PRN (20:15)
[2016-09-16] MEDS ORDERED: MISCELLANEOUS NURSING INFORMATION XX SCH (20:15)
[2016-09-16] MEDS ORDERED: ZOLPIDEM TARTRATE 5 MG TAB PO PRN (20:15)
[2016-09-16] MEDS ORDERED: ONDANSETRON HCL 4 MG/2 ML VIAL IV PRN (20:15)
[2016-09-16] MEDS ORDERED: SODIUM CHLORIDE 0.9% FLUSH 10 ML FLUSH PRN (20:15)
[2016-09-16] MEDS ORDERED: MORPHINE SULFATE 4 MG/ML INJ IV PRN (20:15)
[2016-09-16] MEDS ORDERED: CHLORHEXIDINE GLUCONATE 2 % 1 PACK (2 CLOTHS) TOP PRN (20:15)
[2016-09-16] MEDS ORDERED: FLUTICASONE PROPIONATE 50 MCG/ACT 16 GM NASAL SPRAY EACH NARE PRN (20:15)
--- NOTE | 2016-09-16 20:16 | HHI.HP ---
HPI Service Critical Care Medicine Primary Care Physician Tessa Shabazz M.D. Admission Diagnosis sepsis, possible cholangitis, UTI Diagnosis: Travel History International Travel<30 Days: No Contact w/Intl Traveler <30 Da: No Traveled to Known Affected Are: No History of Present Illness 81-year-old female came with complaints of generalized weakness and not feeling well. She has not been feeling well for past 3-4 days. She was brought in by EMS because her daughter called 911. Her temperature in the emergency department was 100.8. She has been vomiting but no diarrhea. She did not vomit today or yesterday. Her appetite has been diminished but denied of any pain anywhere. No history of cough. Vital signs otherwise was within normal limits. CT of the abdomen shows the common bile duct dilation up to 9 mm; Review of Systems Constitutional: DENIES: Diaphoretic episodes, Fatigue, Fever, Weight gain, Weight loss, Chills, Dizziness, Change in appetite, Night Sweats Endocrine: DENIES: Abnorml menstrual pattern, Heat/cold intolerance, Polydipsia , Polyuria, Polyphagia Eyes: DENIES: Blurred vision, Diplopia, Eye inflammation, Eye pain, Vision loss , Photosensitivity, Double Vision Ears, nose, mouth, throat: DENIES: Tinnitus, Hearing loss, Vertigo, Nasal discharge, Oral lesions, Throat pain, Hoarseness, Ear Pain, Running Nose, Epistaxis, Sinus Pain, Toothache, Odynophagia Respiratory: DENIES: Apneas, Cough, Snoring, Wheezing, Hemoptysis, Sputum production, Shortness of breath Cardiovascular: DENIES: Chest pain, Palpitations, Syncope, Dyspnea on Exertion , PND, Lower Extremity Edema, Orthopnea, Claudication Gastrointestinal: COMPLAINS OF: Abdominal pain, Nausea, Vomiting, DENIES: Black stools, Bloody stools, Constipation, Diarrhea, Difficulty Swallowing, Anorexia Genitourinary: DENIES: Abnormal vaginal bleeding, Dysmenorrhea, Dyspareunia, Sexual dysfunction, Urinary frequency, Urinary incontinence, Urgency, Hematuria , Dysuria, Nocturia, Vaginal discharge Musculoskeletal: DENIES: Joint pain, Muscle aches, Stiffness, Joint Swelling, Back pain, Neck pain Integumentary: DENIES: Abnormal pigmentation, Pruritus, Rash, Nail changes, Breast masses, Breast skin changes, Nipple discharge Hematologic/lymphatic: DENIES: Bruising, Lymphadenopathy Immunologic/allergic: DENIES: Eczema, Urticaria Neurologic: DENIES: Abnormal gait, Headache, Localized weakness, Paresthesias, Seizures, Speech Problems, Tremor, Poor Balance Psychiatric: DENIES: Anxiety, Confusion, Mood changes, Depression, Hallucinations, Agitation, Suicidal Ideation, Homicidal Ideation, Delusions Past Family Social History Allergies: Coded Allergies: Flounder (Unverified Allergy, Mild, 04/19/16) Uncoded Allergies: FISH/FLOUNDER (Allergy, Severe, SYNCOPE, 07/07/08) Past Medical History Anxiety/depression Congestive heart failure Coronary artery disease GERD Hypertension Hyperlipidemia Hypothyroidism Past Surgical History Left eye cataract surgery Hysterectomy Cholecystectomy Left shoulder surgery Right knee surgery Reported Medications Reported Meds & Active Scripts Active Metoprolol Tartrate 50 Mg Tab 50 Mg PO BID Reported Zofran (Ondansetron HCl) 4 Mg Tab 4 Mg PO Q6HR PRN Tessalon Perles (Benzonatate) 100 Mg Cap 100 Mg PO TID PRN Fluticasone Nasal [place] 50 Mcg/Act Naspr 50 Mcg EACH NARE DAILY 50 mcg/spray Entresto (Sacubitril-Valsartan) 24-26 Mg Tab 1 Tab PO BID Jolly Aspirin EC Low Dose (Aspirin) 81 Mg Tabdr 81 Mg PO DAILY Lasix (Furosemide) 20 Mg Tab 40 Mg PO DAILY Lovastatin 40 Mg Tab 40 Mg PO DAILY Potassium Chloride ER (Potassium Chloride) 10 Meq Cap 10 Meq PO DAILY Take with food Levothyroxine (Levothyroxine Sodium) 100 Mcg Tab 100 Mcg PO DAILY Active Ordered Medications Current Medications Medications (Trade) Dose Ordered Sig/Onofre Route PRN Reason Start Time Stop Time Status Last Admin Dose Admin Aspirin (Ecotrin Ec) 81 mg DAILY PO 09/17/16 09:00 Benzonatate (Tessalon) 100 mg TID PRN PO COUGH 09/16/16 20:15 Fluticasone Propionate (Flonase Isidro Spr) 1 spray DAILY PRN EACH NARE congestion 09/16/16 20:15 Levothyroxine Sodium 100 mcg 100 mcg DAILY@06 PO 09/17/16 06:00 Sodium Chloride (NS 1000 ml Inj) 1,000 ml @ 84 mls/hr [id number] IV 09/16/16 20:08 Sodium Chloride (NS Flush) 2 ml UNSCH PRN .XX FLUSH AFTER USING IV ACCESS 09/16/16 20:15 Sodium Chloride (NS Flush) 2 ml BID .XX 09/16/16 21:00 Acetaminophen (Tylenol) 650 mg Q6H PRN PO PAIN 1-10 AND/OR FEVER >101F 09/16/16 20:15 Morphine Sulfate (Morphine Inj) 2 mg Q2H PRN IV PAIN SCALE 6 TO 10 09/16/16 20:15 Famotidine (Pepcid Inj) 20 mg Q12HR IV PUSH 09/16/16 21:00 Ondansetron HCl (Zofran Inj) 4 mg Q6H PRN IV NAUSEA OR VOMITING 09/16/16 20:15 Metoclopramide HCl (Reglan Inj) 10 mg Q6H PRN IV NAUSEA OR VOMITING 09/16/16 20:15 Docusate Sodium (Colace Liq) 100 mg Q12H G-TUBE 09/16/16 21:00 Zolpidem Tartrate (Ambien) 5 mg HS PRN PO INSOMNIA 09/16/16 20:15 Enoxaparin Sodium (Lovenox Inj) 30 mg Q24H SQ 09/16/16 22:00 Miscellaneous Information 1 [id number] XX 09/16/16 20:15 Chlorhexidine Gluconate (Chlorhexidine 2% Cloth) 3 pack Taper DAILY@04 TOP 09/17/16 04:00 09/13/17 03:59 Chlorhexidine Gluconate 3 pack 3 pack UNSCH PRN TOP HYGIENIC CARE 09/16/16 20:15 Piperacillin Sod/ Tazobactam Sod (Zosyn 4.5 Gm Premix) 100 ml @ 200 mls/hr Q6H IV 09/17/16 00:00 Family History Noncontributory Social History Negative 3 Physical Exam Vital Signs Vital Signs Date Time Temp Pulse Resp B/P Pulse Ox O2 Delivery O2 Flow Rate FiO2 09/16/16 18:30 65 27 118/69 95 Nasal Cannula 2 09/16/16 17:38 98.9 09/16/16 17:30 68 26 114/56 95 Nasal Cannula 2 09/16/16 16:35 Room Air 09/16/16 16:32 68 25 112/44 95 Nasal Cannula 2 09/16/16 15:00 97 Nasal Cannula 2 09/16/16 14:56 100.6 66 21 122/57 97 09/16/16 14:56 100.6 67 16 122/59 97 Room Air Physical Exam GENERAL: Well-nourished, well-developed patient. SKIN: Warm and dry. HEAD: Normocephalic. EYES: No scleral icterus. No injection or drainage. NECK: Supple, trachea midline. No JVD or lymphadenopathy. CARDIOVASCULAR: Regular rate and rhythm without murmurs, gallops, or rubs. RESPIRATORY: Breath sounds equal bilaterally. No accessory muscle use. GASTROINTESTINAL: Abdomen soft, non-tender, nondistended. MUSCULOSKELETAL: No cyanosis, or edema. BACK: Nontender without obvious deformity. No CVA tenderness. EXTREMITIES: No clubbing cyanosis or edema Laboratory Laboratory Tests Test 09/16/16 09/16/16 09/16/16 15:10 15:15 15:17 White Blood Count 12.3 Red Blood Count 4.15 Hemoglobin 13.4 Hematocrit 39.7 Mean Corpuscular Volume 95.7 Mean Corpuscular Hemoglobin 32.3 Mean Corpuscular Hemoglobin 33.8 Concent Red Cell Distribution Width 16.9 Platelet Count 174 Mean Platelet Volume 8.2 Neutrophils (%) (Auto) 71.6 Lymphocytes (%) (Auto) 7.9 Monocytes (%) (Auto) 20.0 Eosinophils (%) (Auto) 0.0 Basophils (%) (Auto) 0.5 Neutrophils # (Auto) 8.8 Lymphocytes # (Auto) 1.0 Monocytes # (Auto) 2.5 Eosinophils # (Auto) 0.0 Basophils # (Auto) 0.1 CBC Comment AUTO DIFF Differential Total Cells 100 Counted Neutrophils % (Manual) 70 Band Neutrophils % 4 Lymphocytes % 6 Monocytes % 20 Neutrophils # (Manual) 9.1 Differential Comment FINAL DIFF MANUAL Toxic Vacuolation PRESENT Platelet Estimate NORMAL Platelet Morphology Comment ENLARGED Ovalocytes 1+ Sodium Level 135 Potassium Level 4.1 Chloride Level 100 Carbon Dioxide Level 28.0 Anion Gap 7 Blood Urea Nitrogen 15 Creatinine 0.82 Estimat Glomerular Filtration 67 Rate Random Glucose 120 Calcium Level 8.8 Total Bilirubin 2.7 Aspartate Amino Transf 53 (AST/SGOT) Alanine Aminotransferase 65 (ALT/SGPT) Alkaline Phosphatase 115 Total Protein 6.6 Albumin 3.2 Lactic Acid Level 1.5 Urine Color YELLOW Urine Turbidity CLEAR Urine pH 5.5 Urine Specific [place] 1.015 Urine Protein TRACE Urine Glucose (UA) NEG Urine Ketones NEG Urine Occult Blood NEG Urine Nitrite NEG Urine Bilirubin NEG Urine Urobilinogen 2.0 Urine Leukocyte Esterase TRACE Urine RBC 1 Urine WBC 4 Urine Bacteria RARE Urine Hyaline Casts 2 Urine Mucus FEW Microscopic Urinalysis Comment CATH-CULTURE IND Date/Time Procedure Status Source Growth 09/16/16 15:17 Urine Culture Worksheet Urine Catheterized Urine Pending 09/16/16 15:15 Aerobic Blood Culture Received Blood Peripheral Pending 09/16/16 15:15 Anaerobic Blood Culture Received Blood Peripheral Pending Result Diagram: 09/16/16 1510 09/16/16 1510 Imaging Last 24 hours Impressions Chest X-Ray 09/16/16 1503 Signed Impressions: Service Date/Time: Friday, September 16, 2016 15:21 - CONCLUSION: No definite infiltrates seen. Increased prominence the elevation of the left hemidiaphragm. Stable cardiomegaly. John Quiles MD Abdomen/Pelvis CT 09/16/16 0000 Signed Impressions: Service Date/Time: Friday, September 16, 2016 17:14 - CONCLUSION: 1. The common bile duct is dilated up to 9 mm; this represents a change when compared to prior CT scan. May consider performing hepatobiliary tract scan to evaluate for evidence of functional obstruction. 2. There is a new wedge-shaped hypodensity in the inferior pole of the spleen suggesting splenic infarction. 3. Ascites in the left upper abdomen, right lower quadrant and in the pelvis. John Quiles MD Assessment and Plan Assessment and Plan Nausea vomiting - Dilated bile duct on the CT - Choledocholithiasis versus cholangitis - HIDA scan per GI recommendation - IV Zosyn for now - Follow blood cultures - Appreciate GI recommendations GERD - IV Pepcid twice a day Hypertension - We'll hold all antihypertensive medications due to possible development of sepsis Hyperlipidemia - We'll hold statins while in the ICU until abdominal exam benign and normal Hypothyroidism - Continue Synthroid DVT GI prophylaxis - Lovenox and Pepcid Critical Care: The total critical care time was 35 minutes. Time to perform other separately billable procedures was not included in the critical care time. Asher Juarez MD Sep 16, 2016 20:15
[2016-09-16] MEDS: DOCUSATE SODIUM 100 MG/10 ML UDC G-TUBE SCH (21:00)
--- NOTE | 2016-09-16 21:41 | RADRPT ---
EXAM DATE/TIME: 09/16/2016 20:29 [facility] COMPARISON: CT ABDOMEN & PELVIS W CONTRAST, September 16, 2016, 17:14. INDICATIONS : Nausea, vomiting, weakness and fever. Dilated common bile duct. DOSE: 4.4 mCi Tc99m Mebrofenin IV MEDICAL HISTORY : Hypertension. Congestive heart failure. Stroke. SURGICAL HISTORY : Cholecystectomy. Hysterectomy. Pacemaker. ENCOUNTER: Initial ACUITY: 2 days PAIN SCALE: 0/10 LOCATION: Right upper quadrant TECHNIQUE: Following the intravenous administration of radiotracer, dynamic sequential images were performed wit h continuous acquisition. FINDINGS: This examination was performed to evaluate dilation of the common bile duct seen on CT scan performed . There is prompt uptake of radiotracer activity is seen hepatic cyst in the 11 minutes. Activity i s seen in the small bowel by 22 minutes. There is normal renal washout from the hepatic parenchyma a nd there is progressive activity seen in the small bowel. 30 minutes after peak activity, 40% washou t from the hepatic parenchyma is seen which is within normal limits. CONCLUSION: There is no evidence of functional obstruction. Prompt data set uptake of radiotracer and normal rat e of washout. John Quiles MD on September 16, 2016 at 21:37 Board Certified Radiologist. This report was verified electronically.
[2016-09-16] MEDS: PIPERACIL-TAZO 4.5 GM PREMIX 100 ML IV SCH (22:20)
[2016-09-16] MEDS: SODIUM CHLORIDE 0.9% FLUSH 10 ML FLUSH SCH (22:20)
[2016-09-16] MEDS: ENOXAPARIN SODIUM 30 MG/0.3 ML SYRINGE SQ SCH (22:20)
[2016-09-16] MEDS: FAMOTIDINE 20 MG/2 ML VIAL IV PUSH SCH (22:20)
[2016-09-16] MEDS: CHLORHEXIDINE GLUCONATE 2 % 1 PACK (2 CLOTHS) TOP SCH (23:30)
--- NOTE | 2016-09-16 23:58 | EKG ---
Date Performed: 09/16/2016 Time Performed: 15:08:52 PTAGE: 81 years EKG: ELECTRONIC VENTRICULAR PACEMAKER ABNORMAL RHYTHM ECG PREVIOUS TRACING : 06/27/2016 07.32 DOCTOR: Otf Aranda Interpretating Date/Time 09/16/2016 23:56:36
[2016-09-17] VITALS (13 sets, daily range): BP systolic 123–143; BP diastolic 59–65; PULSE 60–84; RESP 17–22; TEMP 98–100; O2SAT 94–98
[2016-09-17] MEDS: LEVOTHYROXINE SODIUM 100 MCG TAB PO SCH (05:00)
[2016-09-17] MEDS: PIPERACIL-TAZO 4.5 GM PREMIX 100 ML IV SCH ×3 (05:13→23:57)
[2016-09-17 05:39] LABS: AUTOMATED NEUTROPHIL # 7.1 TH/MM3 (1.8-7.7); BASOPHIL % 0.4 % (0.0-2.0); EOSINOPHIL % 0.3 % (0.0-4.0); HEMATOCRIT 37.6 % (35.0-46.0); HEMO FLAGS DIFF FINAL; LYMPH % 13.2 % (9.0-44.0); LYMPHOCYTE # 1.4 TH/MM3 (1.0-4.8); MEAN CELL VOLUME 98.9 FL (80.0-100.0); MEAN CORPUSCULAR HEMOGLOBIN 31.5 PG (27.0-34.0); MEAN CORPUSCULAR HGB CONC 31.9 % (32.0-36.0); MONO % 18.2 % (0.0-8.0); NEUT % 67.9 % (16.0-70.0); PLATELET COUNT 113 TH/MM3 (150-450); RED BLOOD COUNT 3.81 MIL/MM3 (4.00-5.30); RED CELL DISTRIBUTION WIDTH 16.7 % (11.6-17.2); WHITE BLOOD COUNT 10.4 TH/MM3 (4.0-11.0)
[2016-09-17 06:27] LABS: BICARBONATE 19.8 MEQ/L (21.0-32.0); CALCIUM-PROTEIN CORRECTED 7.6 MG/DL (8.5-10.1); MAGNESIUM 1.2 MG/DL (1.5-2.5); TOTAL BILIRUBIN ADULT 2.3 MG/DL (0.2-1.0)
[2016-09-17 06:29] LABS: POTASSIUM 2.9 MEQ/L (3.5-5.1)
[2016-09-17] MEDS: ICU - POTASSIUM CHLORIDE/AQUEOUS SOLN 20 MEQ/100 ML IVPB IV PRN ×2 (06:52→12:52)
[2016-09-17] MEDS ORDERED: ICU - CALL ORDERING PHYSICIAN PRN (07:00)
[2016-09-17] MEDS ORDERED: ICU - D/C ICU ELECTROLYTE ORDERS PRN (07:00)
[2016-09-17] MEDS ORDERED: ICU - MAGNESIUM SULFATE 4 GM/NS 100 ML IV PRN ×2 (07:00)
[2016-09-17] MEDS ORDERED: ICU - POTASSIUM PHOSPHATE 30 MMOL/NS 250 ML IV PRN ×2 (07:00)
[2016-09-17] MEDS ORDERED: ICU - SODIUM PHOSPHATE 30 MMOL/NS 250 ML IV PRN ×2 (07:00)
[2016-09-17] MEDS ORDERED: ICU - POTASSIUM CHLORIDE/AQUEOUS SOLN 40 MEQ/100 ML IVPB IV PRN (07:00)
[2016-09-17] MEDS ORDERED: ICU - MAGNESIUM OXIDE 400 MG TAB PO PRN (07:00)
[2016-09-17] MEDS ORDERED: ICU - POTASSIUM PHOSPHATE MONOBASIC 500 MG TAB PO PRN (07:00)
[2016-09-17] MEDS ORDERED: ICU - MAGNESIUM SULFATE 2 GM/NS 100 ML IV PRN ×2 (07:00)
[2016-09-17] MEDS: SODIUM CHLORIDE 0.9% FLUSH 10 ML FLUSH SCH ×2 (08:18→20:37)
[2016-09-17] MEDS: SODIUM CHLOR 0.9% 1000 ML INJ 1,000 ML IV SCH (08:18)
[2016-09-17] MEDS: DOCUSATE SODIUM 100 MG/10 ML UDC G-TUBE SCH ×2 (08:18→20:37)
[2016-09-17] MEDS: ASPIRIN EC 81 MG TABEC PO SCH (08:19)
[2016-09-17] MEDS: FAMOTIDINE 20 MG/2 ML VIAL IV PUSH SCH ×2 (08:19→20:36)
--- NOTE | 2016-09-17 09:33 | PD.CONS ---
HPI History of Present Illness This is a 81 year old who came to ER for generalized weakness and increased malaise x 3-4 days. She was brought to ER by EMS after her daughter called 911. Upon arrival to ER she was found to have temperature of 100.8F. She was having emesis at home, but no diarrhea over the past 3 days, which has now resolved. CT of the Abdomen/Pelvis 09/16/16 showed common bile duct dilation up to 9 mm. HIDA scan 09/16/16 showed no evidence of functional obstruction. Initial WBC count 12.3, which is improved to 10.4 today. Total Bilirubin initially 2.7 and today 2.3. Today she denies any nausea, vomiting, or diarrhea. Reports she has a decreased appetite, but says she often has episodes of decreased appetite every few months. Denies abdominal pain. (Ina Bravo) PFSH Past Medical History -Anxiety/depression -Congestive heart failure -Coronary artery disease -GERD -HTN -HLD -Hypothyroidism Past Surgical History -Left eye cataract surgery -Hysterectomy -Cholecystectomy -Left shoulder surgery -Right knee surgery (Ina Bravo) Coded Allergies: Flounder (Unverified Allergy, Mild, 04/19/16) Uncoded Allergies: FISH/FLOUNDER (Allergy, Severe, SYNCOPE, 07/07/08) Medications Current Medications Medications (Trade) Dose Ordered Sig/Onofre Route PRN Reason Start Time Stop Time Status Last Admin Dose Admin Aspirin (Ecotrin Ec) 81 mg DAILY PO 09/17/16 09:00 09/17/16 08:19 Benzonatate (Tessalon) 100 mg TID PRN PO COUGH 09/16/16 20:15 Fluticasone Propionate (Flonase Isidro Spr) 1 spray DAILY PRN EACH NARE congestion 09/16/16 20:15 Levothyroxine Sodium 100 mcg 100 mcg DAILY@06 PO 09/17/16 06:00 Sodium Chloride (NS 1000 ml Inj) 1,000 ml @ 84 mls/hr [id number] IV 09/16/16 20:08 09/17/16 08:18 Sodium Chloride (NS Flush) 2 ml UNSCH PRN .XX FLUSH AFTER USING IV ACCESS 09/16/16 20:15 Sodium Chloride (NS Flush) 2 ml BID .XX 09/16/16 21:00 09/17/16 08:18 Acetaminophen (Tylenol) 650 mg Q6H PRN PO PAIN 1-10 AND/OR FEVER >101F 09/16/16 20:15 Morphine Sulfate (Morphine Inj) 2 mg Q2H PRN IV PAIN SCALE 6 TO 10 09/16/16 20:15 Famotidine (Pepcid Inj) 20 mg Q12HR IV PUSH 09/16/16 21:00 09/17/16 08:19 Ondansetron HCl (Zofran Inj) 4 mg Q6H PRN IV NAUSEA OR VOMITING 09/16/16 20:15 Metoclopramide HCl (Reglan Inj) 10 mg Q6H PRN IV NAUSEA OR VOMITING 09/16/16 20:15 Docusate Sodium (Colace Liq) 100 mg Q12H G-TUBE 09/16/16 21:00 09/17/16 08:18 Zolpidem Tartrate (Ambien) 5 mg HS PRN PO INSOMNIA 09/16/16 20:15 Enoxaparin Sodium (Lovenox Inj) 30 mg Q24H SQ 09/16/16 22:00 09/16/16 22:20 Miscellaneous Information 1 Q361D XX 09/16/16 20:15 09/16/16 20:15 Chlorhexidine Gluconate (Chlorhexidine 2% Cloth) 3 pack Taper DAILY@04 TOP 09/17/16 04:00 09/13/17 03:59 09/16/16 23:30 Chlorhexidine Gluconate 3 pack 3 pack UNSCH PRN [facility] 09/16/16 20:15 Piperacillin Sod/ Tazobactam Sod (Zosyn 4.5 Gm Premix) 100 ml @ 200 mls/hr Q6H IV 09/17/16 00:00 09/17/16 05:13 Miscellaneous Information D/C ICU ELECTROLYTE ORDERS... UNSCH PRN .XX SEE DOSE INSTRUCTIONS 09/17/16 07:00 Miscellaneous Information ICU - CALL ORDERING PHYSIC... UNSCH PRN .XX SEE DOSE INSTRUCTIONS 09/17/16 07:00 Potassium Chloride 100 ml @ 25 mls/hr UNSCH PRN IV ELECTROLYTE REPLACEMENT 09/17/16 07:00 Potassium Chloride 100 ml @ 50 mls/hr UNSCH PRN IV ELECTROLYTE REPLACEMENT 09/17/16 07:00 09/17/16 06:52 Magnesium Sulfate 4 gm/Sodium Chloride 108 ml @ 54 mls/hr UNSCH PRN IV ELECTROLYTE REPLACEMENT 09/17/16 07:00 Magnesium Sulfate/ Sodium Chloride (Magnesium Sulfate Inj/NS Inj) 104 ml @ 52 mls/hr UNSCH PRN IV ELECTROLYTE REPLACEMENT 09/17/16 07:00 Magnesium Oxide 800 mg 800 mg UNSCH PRN PO ELECTROLYTE REPLACEMENT 09/17/16 07:00 Sodium Phosphate/ Sodium Chloride (Sodium Phosphate Inj/NS 250 ml Inj) 260 ml @ 43.333 mls/ hr UNSCH PRN IV ELECTROLYTE REPLACEMENT 09/17/16 07:00 Potassium Phosphate 2000 mg 2,000 mg UNSCH PRN PO ELECTROLYTE REPLACEMENT 09/17/16 07:00 Potassium Phosphate/Sodium Chloride (Potassium Phosphate Inj/NS 250 ml Inj) 260 ml @ 43.333 mls/ hr UNSCH PRN IV ELECTROLYTE REPLACEMENT 09/17/16 07:00 Family History Patient states she is not sure of family history. Social History ETOH: Denies Tobacco: Denies Illicit Drugs: Denies (Ina Bravo) Review of Systems Constitutional: COMPLAINS OF: Change in appetite, DENIES: Diaphoretic episodes , Fatigue, Fever, Weight gain, Weight loss, Chills, Dizziness, Night Sweats Endocrine: DENIES: Polydipsia, Polyuria Eyes: DENIES: Blurred vision, Photosensitivity, Double Vision Ears, nose, mouth, throat: DENIES: Hearing loss, Vertigo, Oral lesions, Throat pain, Hoarseness Respiratory: DENIES: Cough, Wheezing, Hemoptysis, Sputum production, Shortness of breath Cardiovascular: DENIES: Chest pain, Palpitations, Syncope, Lower Extremity Edema, Orthopnea, Claudication Gastrointestinal: DENIES: Abdominal pain, Black stools, Bloody stools, Constipation, Diarrhea, Nausea, Vomiting, Difficulty Swallowing, Anorexia, Odynophagia, Swelling of Abdomen, Heartburn, Hematemesis Genitourinary: DENIES: Urinary frequency, Urinary incontinence, Urgency, Hematuria, Dysuria, Nocturia Musculoskeletal: DENIES: Joint pain, Muscle aches, Stiffness, Joint Swelling, Back pain, Neck pain Integumentary: DENIES: Abnormal pigmentation, Nail changes, Pruritus, Rash, Jaundice Hematologic/lymphatic: DENIES: Bruising, Lymphadenopathy Immunologic/allergic: DENIES: Eczema, Urticaria Neurologic: DENIES: Abnormal gait, Headache, Localized weakness, Paresthesias Psychiatric: DENIES: Anxiety, Confusion, Mood changes, Depression, Agitation, Suicidal Ideation (Ina Bravo) GI Exam Vitals I&O Vital Signs Date Time Temp Pulse Resp B/P Pulse Ox O2 Delivery O2 Flow Rate FiO2 09/17/16 07:47 97 09/17/16 06:00 60 09/17/16 04:00 98.1 60 22 130/59 97 09/17/16 04:00 60 09/17/16 02:00 60 09/17/16 00:00 60 09/17/16 00:00 98.0 60 22 130/59 97 09/16/16 22:14 98.2 61 16 136/60 95 09/16/16 21:15 97 Nasal Cannula 2.00 09/16/16 20:00 74 16 121/75 97 09/16/16 18:30 65 27 118/69 95 Nasal Cannula 2 09/16/16 17:38 98.9 09/16/16 17:30 68 26 114/56 95 Nasal Cannula 2 09/16/16 16:35 Room Air 09/16/16 16:32 68 25 112/44 95 Nasal Cannula 2 09/16/16 15:00 97 Nasal Cannula 2 09/16/16 14:56 100.6 66 21 122/57 97 09/16/16 14:56 100.6 67 16 122/59 97 Room Air I/O 09/16/16 09/16/16 09/16/16 09/17/16 09/17/16 09/17/16 07:00 15:00 23:00 07:00 15:00 23:00 Intake Total 566 ml Output Total 350 ml Balance 216 ml Intake IV Total 566 ml Output Urine Total 350 ml # Voids 1 Imaging Last Impressions Chest X-Ray 09/16/16 1503 Signed Impressions: Service Date/Time: Friday, September 16, 2016 15:21 - CONCLUSION: No definite infiltrates seen. Increased prominence the elevation of the left hemidiaphragm. Stable cardiomegaly. John Quiles MD Hepatobiliary Scan Nuclear Medicine 09/16/16 0000 Signed Impressions: Service Date/Time: Friday, September 16, 2016 20:29 - CONCLUSION: There is no evidence of functional obstruction. Prompt data set uptake of radiotracer and normal rate of washout. John Quiles MD Abdomen/Pelvis CT 09/16/16 0000 Signed Impressions: Service Date/Time: Friday, September 16, 2016 17:14 - CONCLUSION: 1. The common bile duct is dilated up to 9 mm; this represents a change when compared to prior CT scan. May consider performing hepatobiliary tract scan to evaluate for evidence of functional obstruction. 2. There is a new wedge-shaped hypodensity in the inferior pole of the spleen suggesting splenic infarction. 3. Ascites in the left upper abdomen, right lower quadrant and in the pelvis. John Quiles MD Laboratory Test 09/16/16 09/16/16 09/16/16 09/16/16 15:10 15:15 15:17 22:10 White Blood Count 12.3 TH/MM3 Red Blood Count 4.15 MIL/MM3 Hemoglobin 13.4 GM/DL Hematocrit 39.7 % Mean Corpuscular Volume 95.7 FL Mean Corpuscular Hemoglobin 32.3 PG Mean Corpuscular Hemoglobin 33.8 % Concent Red Cell Distribution Width 16.9 % Platelet Count 174 TH/MM3 Mean Platelet Volume 8.2 FL Neutrophils (%) (Auto) 71.6 % Lymphocytes (%) (Auto) 7.9 % Monocytes (%) (Auto) 20.0 % Eosinophils (%) (Auto) 0.0 % Basophils (%) (Auto) 0.5 % Neutrophils # (Auto) 8.8 TH/MM3 Lymphocytes # (Auto) 1.0 TH/MM3 Monocytes # (Auto) 2.5 TH/MM3 Eosinophils # (Auto) 0.0 TH/MM3 Basophils # (Auto) 0.1 TH/MM3 CBC Comment AUTO DIFF Differential Total Cells 100 Counted Neutrophils % (Manual) 70 % Band Neutrophils % 4 % Lymphocytes % 6 % Monocytes % 20 % Neutrophils # (Manual) 9.1 TH/MM3 Differential Comment FINAL DIFF MANUAL Toxic Vacuolation PRESENT Platelet Estimate NORMAL Platelet Morphology Comment ENLARGED Ovalocytes 1+ Sodium Level 135 MEQ/L Potassium Level 4.1 MEQ/L Chloride Level 100 MEQ/L Carbon Dioxide Level 28.0 MEQ/L Anion Gap 7 MEQ/L Blood Urea Nitrogen 15 MG/DL Creatinine 0.82 MG/DL Estimat Glomerular Filtration 67 ML/MIN Rate Random Glucose 120 MG/DL Calcium Level 8.8 MG/DL Total Bilirubin 2.7 MG/DL Aspartate Amino Transf 53 U/L (AST/SGOT) Alanine Aminotransferase 65 U/L (ALT/SGPT) Alkaline Phosphatase 115 U/L Total Protein 6.6 GM/DL Albumin 3.2 GM/DL Lactic Acid Level 1.5 mmol/L Urine Color YELLOW Urine Turbidity CLEAR Urine pH 5.5 Urine Specific [place] 1.015 Urine Protein TRACE mg/dL Urine Glucose (UA) NEG mg/dL Urine Ketones NEG mg/dL Urine Occult Blood NEG Urine Nitrite NEG Urine Bilirubin NEG Urine Urobilinogen 2.0 MG/DL Urine Leukocyte Esterase TRACE Urine RBC 1 /hpf Urine WBC 4 /hpf Urine Bacteria RARE /hpf Urine Hyaline Casts 2 /lpf Urine Mucus FEW /lpf Microscopic Urinalysis Comment CATH-CULTURE IND Nasal Screen MRSA (PCR) NEGATIVE Test 09/17/16 04:58 White Blood Count 10.4 TH/MM3 Red Blood Count 3.81 MIL/MM3 Hemoglobin 12.0 GM/DL Hematocrit 37.6 % Mean Corpuscular Volume 98.9 FL Mean Corpuscular Hemoglobin 31.5 PG Mean Corpuscular Hemoglobin 31.9 % Concent Red Cell Distribution Width 16.7 % Platelet Count 113 TH/MM3 Mean Platelet Volume 8.1 FL Neutrophils (%) (Auto) 67.9 % Lymphocytes (%) (Auto) 13.2 % Monocytes (%) (Auto) 18.2 % Eosinophils (%) (Auto) 0.3 % Basophils (%) (Auto) 0.4 % Neutrophils # (Auto) 7.1 TH/MM3 Lymphocytes # (Auto) 1.4 TH/MM3 Monocytes # (Auto) 1.9 TH/MM3 Eosinophils # (Auto) 0.0 TH/MM3 Basophils # (Auto) 0.0 TH/MM3 CBC Comment DIFF FINAL Differential Comment Sodium Level 143 MEQ/L Potassium Level 2.9 MEQ/L Chloride Level 113 MEQ/L Carbon Dioxide Level 19.8 MEQ/L Anion Gap 10 MEQ/L Blood Urea Nitrogen 11 MG/DL Creatinine 0.60 MG/DL Estimat Glomerular Filtration 95 ML/MIN Rate Random Glucose 71 MG/DL Lactic Acid Level 1.7 mmol/L Calcium Level 6.1 MG/DL Protein Corrected Calcium 7.6 MG/DL Phosphorus Level 1.9 MG/DL Magnesium Level 1.2 MG/DL Total Bilirubin 2.3 MG/DL Aspartate Amino Transf 41 U/L (AST/SGOT) Alanine Aminotransferase 42 U/L (ALT/SGPT) Alkaline Phosphatase 110 U/L Total Protein 4.1 GM/DL Albumin 1.8 GM/DL Date/Time Procedure Status Source Growth 09/16/16 20:26 Aerobic Blood Culture Received Blood Peripheral Pending 09/16/16 20:26 Anaerobic Blood Culture Received Blood Peripheral Pending 09/16/16 15:17 Urine Culture Worksheet Urine Catheterized Urine Pending Physical Examination HEENT: PERRLA; normocephalic; atraumatic; no jaundice. NECK: Neck is supple, no JVD, no lymphadenopathy. CHEST: CTA CARDIAC: RRR with no murmur gallop or rubs. ABDOMEN: Soft, nondistended, nontender; no hepatosplenomegaly; bowel sounds are present x 4 quadrants EXTREMITIES: No clubbing, cyanosis, or edema. SKIN: Normal; no rash; no jaundice. FIREBOAT OPERATOR: No focal deficits; A&O x3 (Ina Bravo) Assessment and Plan Plan ASSESSMENT: -Nausea, vomiting-Resolved. Patient continues to have decreased appetite, but no abdominal pain. Abdomen/Pelvis CT 09/16/16 1. The common bile duct is dilated up to 9 mm; this represents a change when compared to prior CT scan. May consider performing hepatobiliary tract scan to evaluate for evidence of functional obstruction. 2. There is a new wedge-shaped hypodensity in the inferior pole of the spleen suggesting splenic infarction. 3. Ascites in the left upper abdomen, right lower quadrant and in the pelvis. Hepatobiliary Scan Nuclear Medicine 09/16/16 There is no evidence of functional obstruction. Prompt data set uptake of radiotracer and normal rate of washout. WBC improved from 12.3 to 10.4. Total Bilirubin improving from 2.7 to 2.3. -GERD, per primary -HTN, per primary -HLD, per primary -Hypothyroidism, per primary PLAN: -Monitor LABS (WBC, Total Bilirubin) -NELSON -No ERCP for now Patient seen and examined by Dr. Bartholomew and myself and this note is written on his behalf (Ina Bravo) Physician Comments Seen and examined with PERSONNEL MONITOR, Hida shows no obstruction but LFTs elevated and change in CBD size when compared to CT in August 2015. Discussed this with pt. and family at bedside. ERCP planned for tomorrow. Continue antibiotics. Liquid diet. Thank you (Devonte Bartholomew MD) Ina Bravo Sep 17, 2016 09:33 Devonte Bartholomew MD Sep 17, 2016 13:25
--- NOTE | 2016-09-17 10:00 | HHI.CCPN ---
Subjective Remarks/Hospital Course Hospital Course: 81-year-old female came with complaints of generalized weakness and not feeling well. She has not been feeling well for past 3-4 days. She was brought in by EMS because her daughter called 911. Her temperature in the emergency department was 100.8. She has been vomiting but no diarrhea. She did not vomit today or yesterday. Her appetite has been diminished but denied of any pain anywhere. No history of cough. Vital signs otherwise was within normal limits. CT of the abdomen shows the common bile duct dilation up to 9 mm; Subjective: 09/17: feels much better this AM. bili downtrending. nuc med scan without evidence of obstruction. may have passed stone. GI eval today and cleared her for diet. will observe conservatively. Objective Vital Signs Date Time Temp Pulse Resp B/P Pulse Ox O2 Delivery O2 Flow Rate FiO2 09/17/16 07:47 97 09/17/16 06:00 60 09/17/16 04:00 98.1 22 130/59 09/16/16 21:15 Nasal Cannula 2.00 Result Diagram: 09/17/16 0458 09/17/16 0458 Imaging Last 24 hours Impressions Chest X-Ray 09/16/16 1503 Signed Impressions: Service Date/Time: Friday, September 16, 2016 15:21 - CONCLUSION: No definite infiltrates seen. Increased prominence the elevation of the left hemidiaphragm. Stable cardiomegaly. John Quiles MD Abdomen/Pelvis CT 09/16/16 0000 Signed Impressions: Service Date/Time: Friday, September 16, 2016 17:14 - CONCLUSION: 1. The common bile duct is dilated up to 9 mm; this represents a change when compared to prior CT scan. May consider performing hepatobiliary tract scan to evaluate for evidence of functional obstruction. 2. There is a new wedge-shaped hypodensity in the inferior pole of the spleen suggesting splenic infarction. 3. Ascites in the left upper abdomen, right lower quadrant and in the pelvis. John Quiles MD Objective Remarks GENERAL: Well-nourished, well-developed patient. SKIN: Warm and dry. HEAD: Normocephalic. EYES: No scleral icterus. No injection or drainage. NECK: Supple, trachea midline. No JVD or lymphadenopathy. CARDIOVASCULAR: Regular rate and rhythm without murmurs, gallops, or rubs. RESPIRATORY: Breath sounds equal bilaterally. No accessory muscle use. GASTROINTESTINAL: Abdomen soft, non-tender, nondistended. MUSCULOSKELETAL: No cyanosis, or edema. BACK: Nontender without obvious deformity. EXTREMITIES: No clubbing cyanosis or edema A/P Assessment and Plan Nausea vomiting- improved - Dilated bile duct on the CT - may have had obstructing stone that passed. - HIDA scan 09/16 negative. - continue IV zosyn, f/u cultures. - Appreciate GI recommendations - nursing bedside swallow eval and advance diet. Sepsis improving d/c mivf. continue abx as above. GERD - IV Pepcid twice a day Hypertension - restart enestrto and lasix po. continue to hold metoprolol. plan to stage reintroduction of anti-htn meds to keep from becoming hypotensive after recent sepsis. Hyperlipidemia - continue to hold statin in the setting of elevated LFTs, as these normalize, I think it is safe to restart soon. Hypothyroidism - Continue Synthroid DVT GI prophylaxis - Lovenox and Pepcid Dispo: stable to transfer to floor with hospitalist following. Johnathan Moreno MD Sep 17, 2016 10:00
--- NOTE | 2016-09-17 11:54 | RADRPT ---
EXAM DATE/TIME: 09/17/2016 11:24 [facility] COMPARISON: No previous studies available for comparison. INDICATIONS : Left shoulder pain since pacemaker was put in. MEDICAL HISTORY : Hypertension. SURGICAL HISTORY : Pacemaker. ENCOUNTER: Initial ACUITY: 1 day PAIN SCORE: 8/10 LOCATION: Left shoulder FINDINGS: There are extensive degenerative changes present at the acromioclavicular joint. Alignment is anatom ic. A fracture is not appreciated. Pacemaker is in good position. CONCLUSION: Extensive degenerative changes without fracture. Chronic rotator cuff tear would be a consideration. Todd Partida MD FACR on September 17, 2016 at 11:50 Board Certified Radiologist. This report was verified electronically.
[2016-09-17] MEDS ORDERED: MAGNESIUM SULFATE 1 GM PREMIX 100 ML IV SCH (13:00)
[2016-09-17] MEDS ORDERED: CALCIUM GLUCONATE INJ 1 GM in DEXTROSE 5% IN WATER 100ML INJ 100 ML IV ONE ×2 (14:30)
[2016-09-17] MEDS ORDERED: SODIUM PHOSPHATE INJ 15 MMOL in SODIUM CHLORIDE 0.9% INJ 150 ML IV ONE (16:00)
[2016-09-17] MEDS ORDERED: ALPR.25 PO (16:02)
[2016-09-17] MEDS: ALPRAZolam 0.25 MG TAB PO PRN (17:18)
[2016-09-17] MEDS: MAGNESIUM SULFATE 1 GM PREMIX 100 ML IV SCH ×2 (19:10→19:45)
[2016-09-17] MEDS: RESP: ALBUTEROL 2.5 MG/IPRATROPIUM 0.5 MG NEB (PRN) INH (19:46)
[2016-09-17] MEDS: SACUBITRIL/VALSARTAN 24 MG-26 MG TAB PO SCH (20:37)
[2016-09-17] MEDS: ENOXAPARIN SODIUM 30 MG/0.3 ML SYRINGE SQ SCH (21:19)
[2016-09-17 22:06] LABS: BICARBONATE 23.6 MEQ/L (21.0-32.0); POTASSIUM 4.3 MEQ/L (3.5-5.1)
[2016-09-18] VITALS (7 sets, daily range): BP systolic 122–138; BP diastolic 61–71; PULSE 69–80; RESP 17–19; TEMP 96.2–98.8; O2SAT 95–97
[2016-09-18] MEDS ORDERED: SODIUM CHLORID 0.9% 500 ML IV PRN (00:45)
[2016-09-18] MEDS: LACTATED RINGER'S 1000 ML INJ 1,000 ML IV SCH ×2 (00:45→22:05)
[2016-09-18] MEDS ORDERED: POVIDONE IODINE 5% (ANTISEPSIS KIT) 4 APPLICATIONS EACH NARE PRN (00:45)
[2016-09-18] MEDS ORDERED: INSULIN HUMAN REGULAR 1,000 UNITS/10 ML VIAL SQ PRN (00:45)
[2016-09-18] MEDS ORDERED: CHLORHEXIDINE GLUCONATE 2 % 1 PACK (2 CLOTHS) TOPICAL PRN (00:45)
[2016-09-18] MEDS ORDERED: METOPROLOL TARTRATE 25 MG TAB PO PRN (00:45)
[2016-09-18] MEDS: CHLORHEXIDINE GLUCONATE 2 % 1 PACK (2 CLOTHS) TOP SCH (04:00)
[2016-09-18] MEDS: PIPERACIL-TAZO 4.5 GM PREMIX 100 ML IV SCH ×3 (05:57→18:01)
[2016-09-18] MEDS: LEVOTHYROXINE SODIUM 100 MCG TAB PO SCH (05:58)
--- NOTE | 2016-09-18 07:51 | HHI.PR ---
Subjective Remarks Pt tells me that she feels nervous about the procedure this morning. Denies any CP/SOB/N/V. Objective Vitals Vital Signs Date Time Temp Pulse Resp B/P Pulse Ox O2 Delivery O2 Flow Rate FiO2 09/18/16 04:21 97.8 79 17 128/71 96 09/18/16 00:24 98.8 80 19 131/70 95 09/17/16 21:10 80 09/17/16 20:06 98.3 78 17 123/65 96 09/17/16 19:50 98.3 78 17 123/65 96 09/17/16 19:46 94 21 09/17/16 16:35 100.0 84 18 134/62 94 09/17/16 12:28 98.5 64 18 143/63 98 09/17/16 10:00 60 09/17/16 08:00 98.6 60 18 128/60 95 09/17/16 08:00 60 I/O 09/17/16 09/17/16 09/17/16 09/18/16 09/18/16 09/18/16 07:00 15:00 23:00 07:00 15:00 23:00 Intake Total 566 ml 899 ml 631 ml Output Total 350 ml Balance 216 ml 899 ml 631 ml Intake Oral 240 ml 240 ml IV Total 566 ml 659 ml 391 ml Output Urine Total 350 ml # Voids 1 2 2 # Bowel Movements 1 0 0 Result Diagram: 09/17/16 0458 09/17/16 2120 Imaging Last Impressions Shoulder X-Ray 09/17/16 0000 Signed Impressions: Service Date/Time: Saturday, September 17, 2016 11:24 - CONCLUSION: Extensive degenerative changes without fracture. Chronic rotator cuff tear would be a consideration. Todd Partida MD FACR Chest X-Ray 09/16/16 1503 Signed Impressions: Service Date/Time: Friday, September 16, 2016 15:21 - CONCLUSION: No definite infiltrates seen. Increased prominence the elevation of the left hemidiaphragm. Stable cardiomegaly. John Quiles MD Hepatobiliary Scan Nuclear Medicine 09/16/16 0000 Signed Impressions: Service Date/Time: Friday, September 16, 2016 20:29 - CONCLUSION: There is no evidence of functional obstruction. Prompt data set uptake of radiotracer and normal rate of washout. John Quiles MD Abdomen/Pelvis CT 09/16/16 0000 Signed Impressions: Service Date/Time: Friday, September 16, 2016 17:14 - CONCLUSION: 1. The common bile duct is dilated up to 9 mm; this represents a change when compared to prior CT scan. May consider performing hepatobiliary tract scan to evaluate for evidence of functional obstruction. 2. There is a new wedge-shaped hypodensity in the inferior pole of the spleen suggesting splenic infarction. 3. Ascites in the left upper abdomen, right lower quadrant and in the pelvis. John Quiles MD Objective Remarks GENERAL: Well-nourished, well-developed patient. NECK: Supple, trachea midline. No JVD or lymphadenopathy. CARDIOVASCULAR: Regular rate and rhythm without murmurs RESPIRATORY: Breath sounds equal bilaterally. No accessory muscle use. GASTROINTESTINAL: Abdomen soft, non-tender, nondistended. EXTREMITIES: moves extremities well, able to sit up for me to examine her. A/P Assessment and Plan - Dilated bile duct on the CT - may have had obstructing stone that passed. - HIDA scan 09/16 negative. - continue IV zosyn, blood cx neg x 1 day, urine cx growing gram neg rods - Appreciate GI recommendations, plan for ERCP this morning. - on liquid diet. - Repeat Labs Sepsis WBC 12.3 this AM. Monitor closely. off ivf. continue abx as above. GERD - IV Pepcid twice a day Hypertension - on enestrto and lasix po. continue to hold metoprolol. BP's have been stable. Hyperlipidemia - continue to hold statin in the setting of elevated LFTs. May restart once cleared by GI Hypothyroidism - Continue Synthroid DVT GI prophylaxis - Lovenox and Pepcid Discharge Planning monitor cultures, adjust Abx Awaiting final recs from GI. Monitor WBC Indira Lopez MD Sep 18, 2016 07:51
[2016-09-18 08:32] LABS: AUTOMATED NEUTROPHIL # 9.2 TH/MM3 (1.8-7.7); BASOPHIL # 0.1 TH/MM3 (0-0.2); BASOPHIL % 0.6 % (0.0-2.0); EOSINOPHIL % 0.1 % (0.0-4.0); HEMATOCRIT 37.1 % (35.0-46.0); HEMO FLAGS DIFF FINAL; LYMPHOCYTE # 1.2 TH/MM3 (1.0-4.8); MEAN CELL VOLUME 96.9 FL (80.0-100.0); MEAN CORPUSCULAR HEMOGLOBIN 31.9 PG (27.0-34.0); MEAN CORPUSCULAR HGB CONC 32.9 % (32.0-36.0); MONO % 14.3 % (0.0-8.0); PLATELET COUNT 137 TH/MM3 (150-450); RED BLOOD COUNT 3.83 MIL/MM3 (4.00-5.30); RED CELL DISTRIBUTION WIDTH 16.3 % (11.6-17.2); WHITE BLOOD COUNT 12.3 TH/MM3 (4.0-11.0)
[2016-09-18 08:52] LABS: ALKALINE PHOSPHATASE 128 U/L (45-117); ALT (GPT) 50 U/L (10-53); ANION GAP 11 MEQ/L (5-15); AST (GOT) 43 U/L (15-37); BICARBONATE 23.4 MEQ/L (21.0-32.0); BLOOD UREA NITROGEN 11 MG/DL (7-18); CHLORIDE 103 MEQ/L (98-107); GLOMERULAR FILTRATION RATE 60 ML/MIN (>89); SODIUM (NA) 137 MEQ/L (136-145); TOTAL BILIRUBIN ADULT 3.5 MG/DL (0.2-1.0)
[2016-09-18] MEDS: SODIUM CHLORIDE 0.9% FLUSH 10 ML FLUSH SCH ×2 (09:00→20:17)
[2016-09-18] MEDS: DOCUSATE SODIUM 100 MG/10 ML UDC G-TUBE SCH ×2 (09:00→20:24)
[2016-09-18] MEDS: ASPIRIN EC 81 MG TABEC PO SCH (09:00)
[2016-09-18] MEDS: FUROSEMIDE 40 MG TAB PO SCH (09:04)
[2016-09-18] MEDS: FAMOTIDINE 20 MG/2 ML VIAL IV PUSH SCH ×2 (09:04→20:21)
[2016-09-18] MEDS: SACUBITRIL/VALSARTAN 24 MG-26 MG TAB PO SCH ×2 (09:04→20:20)
[2016-09-18] MEDS ORDERED: IOHEXOL 350 MG/ML 100 ML BTL (for RAD DIAG) OTHER ONE (10:25)
[2016-09-18] MEDS ORDERED: GLUCAGON 1 MG/ML VIAL IV ONE (10:30)
--- NOTE | 2016-09-18 10:59 | GIPROC ---
[facility] [address] [facility]. [facility], [address] ERCP PROCEDURE REPORT EXAM DATE: 09/18/2016 PATIENT NAME: Diamond Schroeder MR #: [id number] BIRTHDATE: 1935 ATTENDING: Devonte Bartholomew MD ORDER #: [id number] [employer] DRIVER: Elsa Alatorre RN and Janeth Dubon RN STATUS: inpatient INDICATIONS: The patient is a 81 yr old female here for an ERCP due to abdominal pain of suspected biliary origin, abnormal abdominal CT, abnormal MRI of the GI tract, and abnormal liver function test PROCEDURE PERFORMED: ERCP with sphincterotomy/papillotomy ERCP with stent placement ERCP with balloon dilation MEDICATIONS: Per Anesthesia and None. CONSENT: The patient understands the risks and benefits of the procedure and understands that these risks include, but are not limited to: sedation, allergic reaction, infection, perforation and/or bleeding. Alternative means of evaluation and treatment include, among others: physical exam, x-rays, and/or surgical intervention. The patient elects to proceed with this endoscopic procedure. medical equipment was checked for proper function. Hand hygiene and appropriate measures for infection prevention was taken. After the risks, benefits and alternatives of the procedure were thoroughly explained, Informed was verified, confirmed and timeout was successfully executed by the treatment team. With the patient in left semi-prone position, medications were administered intravenously.The Pentax [id number] was passed from the mouth into the esophagus and further advanced from the esophagus into the stomach. From stomach scope was directed to the second portion of the duodenum. Major papilla was aligned with the duodenoscope. The scope position was confirmed fluoroscopically. Rest of the findings/therapeutics are given below. The scope was then completely withdrawn from the patient and the procedure completed. The pulse, BP, and O2 saturation were monitored and documented by the physician and the nursing staff throughout the entire procedure. The patient was cared for as planned according to standard protocol. The patient was then discharged to recovery in stable condition and with appropriate post procedure care. Sphincterotomy performed, and balloon sweeps x 2. 8.5 fr x 9 cm silastic stent placed. A tight short stricture was noted in the distal common bile duct with upstream dilation. ADVERSE EVENT: There were no complications. IMPRESSIONS: 1. Sphincterotomy performed, and balloon sweeps x 2. 8.5 fr x 9 cm silastic stent placed 2. 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 Repeat labs REPEAT EXAM: Return 12 weeks ERCP Devonte Bartholomew MD eSigned: Devonte Bartholomew MD 09/18/2016 10:59 AM cc:
[2016-09-18] MEDS ORDERED: *ONDANSETRON 4 MG VIAL PERIprocedural Use ONLY ONE (11:51)
[2016-09-18] MEDS ORDERED: PROPOFOL 200 MG/20 ML AMP IV ONE (14:27)
[2016-09-18] MEDS ORDERED: METOCLOPRAMIDE HCL 10 MG/2 ML VIAL IV PUSH PRN (14:45)
--- NOTE | 2016-09-18 15:00 | RADRPT ---
EXAM DATE/TIME: 09/18/2016 10:34 [facility] COMPARISON: CT ABDOMEN & PELVIS W CONTRAST, September 16, 2016, 17:14. SHOULDER LEFT COMPLETE (>2VWS), September 17 7, 11:24. INDICATIONS : Obstruction. FLUORO TIME: 1.5 minutes IMAGE COUNT: 3 CONTRAST: Instilled by Ordering Physician MEDICAL HISTORY : None. SURGICAL HISTORY : None. ENCOUNTER: Initial ACUITY: 1 day PAIN SCORE: 0/10 LOCATION: Right chest FINDINGS: An ERCP was performed by the ordering physician. The images demonstrate the patient be post cholecystectomy. The common duct is dilated. The ampulla a ppears narrowed. The intrahepatic ducts are normal in caliber. Subsequent imaging demonstrates placem ent of a biliary stent. CONCLUSION: ERCP as above. Haris Partida MD on September 18, 2016 at 14:57 Board Certified Radiologist. This report was verified electronically.
[2016-09-18] MEDS: ACETAMINOPHEN 325 MG TAB PO PRN (17:05)
[2016-09-18] MEDS: ENOXAPARIN SODIUM 30 MG/0.3 ML SYRINGE SQ SCH (21:32)
[2016-09-18] MEDS: METOCLOPRAMIDE HCL 10 MG/2 ML VIAL IV PRN (21:33)
[2016-09-18] MEDS: ALPRAZolam 0.25 MG TAB PO PRN (21:36)
[2016-09-19] VITALS (8 sets, daily range): BP systolic 100–119; BP diastolic 55–70; PULSE 60–83; RESP 16–18; TEMP 96.1–97.3; O2SAT 93–98
[2016-09-19] MEDS: CHLORHEXIDINE GLUCONATE 2 % 1 PACK (2 CLOTHS) TOP SCH (02:25)
[2016-09-19] MEDS: LEVOTHYROXINE SODIUM 100 MCG TAB PO SCH (05:15)
[2016-09-19 07:29] LABS: AUTOMATED NEUTROPHIL # 8.1 TH/MM3 (1.8-7.7); BASOPHIL # 0.1 TH/MM3 (0-0.2); BASOPHIL % 0.8 % (0.0-2.0); EOSINOPHIL # 0.1 TH/MM3 (0-0.4); EOSINOPHIL % 0.7 % (0.0-4.0); HEMATOCRIT 38.2 % (35.0-46.0); HEMO FLAGS DIFF FINAL; LYMPHOCYTE # 1.1 TH/MM3 (1.0-4.8); MEAN CELL VOLUME 98.6 FL (80.0-100.0); MEAN CORPUSCULAR HEMOGLOBIN 31.6 PG (27.0-34.0); MEAN CORPUSCULAR HGB CONC 32.1 % (32.0-36.0); MONO % 15.5 % (0.0-8.0); PLATELET COUNT 137 TH/MM3 (150-450); RED BLOOD COUNT 3.87 MIL/MM3 (4.00-5.30); WHITE BLOOD COUNT 11.1 TH/MM3 (4.0-11.0)
[2016-09-19 07:41] LABS: ANION GAP 11 MEQ/L (5-15); AST (GOT) 33 U/L (15-37); BICARBONATE 23.4 MEQ/L (21.0-32.0); BLOOD UREA NITROGEN 9 MG/DL (7-18); CHLORIDE 105 MEQ/L (98-107); GLOMERULAR FILTRATION RATE 73 ML/MIN (>89); POTASSIUM 3.7 MEQ/L (3.5-5.1); SODIUM (NA) 139 MEQ/L (136-145)
[2016-09-19 07:43] LABS: ALKALINE PHOSPHATASE 118 U/L (45-117); ALT (GPT) 39 U/L (10-53)
[2016-09-19] MEDS: DOCUSATE SODIUM 100 MG/10 ML UDC G-TUBE SCH ×2 (09:00→20:13)
[2016-09-19] MEDS: SACUBITRIL/VALSARTAN 24 MG-26 MG TAB PO SCH ×2 (09:01→20:12)
[2016-09-19] MEDS: ASPIRIN EC 81 MG TABEC PO SCH (09:01)
[2016-09-19] MEDS: FUROSEMIDE 40 MG TAB PO SCH (09:01)
[2016-09-19] MEDS: FAMOTIDINE 20 MG/2 ML VIAL IV PUSH SCH ×2 (09:02→20:12)
[2016-09-19] MEDS: SODIUM CHLORIDE 0.9% FLUSH 10 ML FLUSH SCH ×2 (09:03→20:14)
--- NOTE | 2016-09-19 15:15 | HHI.GIFU ---
Subjective Remarks Resting in bed. States she had some nausea after the procedure, but no vomiting or abdominal pain. Doing better today. Afebrile. Tolerating diet. Objective Vitals I&O Vital Signs Date Time Temp Pulse Resp B/P Pulse Ox O2 Delivery O2 Flow Rate FiO2 09/19/16 12:00 96.5 67 18 119/59 94 09/19/16 10:04 94 21 09/19/16 08:00 96.1 68 18 112/55 93 09/19/16 04:00 96.3 60 17 113/58 94 09/19/16 02:09 66 09/19/16 00:00 96.9 71 16 116/56 98 09/18/16 20:00 97.7 71 17 138/61 97 09/18/16 16:00 97.4 76 18 138/66 96 I/O 09/18/16 09/18/16 09/18/16 09/19/16 09/19/16 09/19/16 07:00 15:00 23:00 07:00 15:00 23:00 Intake Total 631 ml 1682 ml 240 ml 240 ml Output Total 100 ml Balance 631 ml 1582 ml 240 ml 240 ml Intake Oral 240 ml 960 ml 240 ml 240 ml IV Total 391 ml 422 ml Other 300 ml Output Urine Total 100 ml # Voids 2 3 1 3 # Bowel Movements 0 1 0 0 Laboratory Laboratory Tests Test 09/19/16 06:12 White Blood Count 11.1 Red Blood Count 3.87 Hemoglobin 12.3 Hematocrit 38.2 Mean Corpuscular Volume 98.6 Mean Corpuscular Hemoglobin 31.6 Mean Corpuscular Hemoglobin 32.1 Concent Red Cell Distribution Width 16.0 Platelet Count 137 Mean Platelet Volume 8.3 Neutrophils (%) (Auto) 73.0 Lymphocytes (%) (Auto) 10.0 Monocytes (%) (Auto) 15.5 Eosinophils (%) (Auto) 0.7 Basophils (%) (Auto) 0.8 Neutrophils # (Auto) 8.1 Lymphocytes # (Auto) 1.1 Monocytes # (Auto) 1.7 Eosinophils # (Auto) 0.1 Basophils # (Auto) 0.1 CBC Comment DIFF FINAL Differential Comment Sodium Level 139 Potassium Level 3.7 Chloride Level 105 Carbon Dioxide Level 23.4 Anion Gap 11 Blood Urea Nitrogen 9 Creatinine 0.76 Estimat Glomerular Filtration 73 Rate Random Glucose 73 Calcium Level 8.6 Total Bilirubin 3.0 Aspartate Amino Transf 33 (AST/SGOT) Alanine Aminotransferase 39 (ALT/SGPT) Alkaline Phosphatase 118 Total Protein 6.0 Albumin 2.5 Date/Time Procedure Status Source Growth 09/16/16 20:26 Aerobic Blood Culture - Preliminary Resulted Blood Peripheral NO GROWTH IN 3 DAYS 09/16/16 20:26 Anaerobic Blood Culture - Preliminary Resulted Blood Peripheral NO GROWTH IN 3 DAYS 09/16/16 15:17 Urine Culture - Final Complete Urine Catheterized Urine Escherichia Coli Imaging Last Impressions GI Procedure 09/18/16 0000 Signed Impressions: Service Date/Time: Sunday, September 18, 2016 10:34 - CONCLUSION: ERCP as above. Haris Partida MD Shoulder X-Ray 09/17/16 0000 Signed Impressions: Service Date/Time: Saturday, September 17, 2016 11:24 - CONCLUSION: Extensive degenerative changes without fracture. Chronic rotator cuff tear would be a consideration. Todd Partida MD FACR Chest X-Ray 09/16/16 1503 Signed Impressions: Service Date/Time: Friday, September 16, 2016 15:21 - CONCLUSION: No definite infiltrates seen. Increased prominence the elevation of the left hemidiaphragm. Stable cardiomegaly. John Quiles MD Hepatobiliary Scan Nuclear Medicine 09/16/16 0000 Signed Impressions: Service Date/Time: Friday, September 16, 2016 20:29 - CONCLUSION: There is no evidence of functional obstruction. Prompt data set uptake of radiotracer and normal rate of washout. John Quiles MD Abdomen/Pelvis CT 09/16/16 0000 Signed Impressions: Service Date/Time: Friday, September 16, 2016 17:14 - CONCLUSION: 1. The common bile duct is dilated up to 9 mm; this represents a change when compared to prior CT scan. May consider performing hepatobiliary tract scan to evaluate for evidence of functional obstruction. 2. There is a new wedge-shaped hypodensity in the inferior pole of the spleen suggesting splenic infarction. 3. Ascites in the left upper abdomen, right lower quadrant and in the pelvis. John Quiles MD Physical Exam HEENT: Normocephalic; atraumatic; no jaundice. CHEST: CTA CARDIAC: RRR ABDOMEN: Soft, nondistended, nontender; no hepatosplenomegaly; bowel sounds are present in all four quadrants. EXTREMITIES: No clubbing, cyanosis, or edema. SKIN: Normal; no rash; no jaundice. TIP CEMENTER: No focal deficits; alert and oriented times three. Assessment and Plan Plan ASSESSMENT: - CBD stricture. S/P ERCP with balloon sweep, stent placement, and sphincterotomy (09/18/16)-----> 1. Sphincterotomy performed, and balloon sweeps x 2. 8.5 fr x 9 cm silastic stent placed 2. Stricture in the distal common bile duct. Rpt. BCx no growth 3 days. S/P Zosyn. PPI. LFT T. Bili 3.0, AST 33, ALT 39, Alk Phosph 118. Tolerating diet. No abdominal pain. -Nausea, vomiting-Resolved. Patient continues to have decreased appetite, but no abdominal pain. Abdomen/Pelvis CT 09/16/16 1. The common bile duct is dilated up to 9 mm; this represents a change when compared to prior CT scan. May consider performing hepatobiliary tract scan to evaluate for evidence of functional obstruction. 2. There is a new wedge-shaped hypodensity in the inferior pole of the spleen suggesting splenic infarction. 3. Ascites in the left upper abdomen, right lower quadrant and in the pelvis. Hepatobiliary Scan Nuclear Medicine 09/16/16 There is no evidence of functional obstruction. Prompt data set uptake of radiotracer and normal rate of washout. -GERD. PPI - Leukocytosis/UTI. S/P abx. - HTN, Hyperlipidemia, Hypothyroidism,per primary PLAN: - NELSON - PPI - CBC, LFT in am - Supportive care - Will need repeat ERCP in 3 months with stent exchange/removal- d/w patient and family - Further recommendations to follow based on results of above - Pt seen and examined by Dr. Jones and myself and this note is written on his behalf Dary Perales Sep 19, 2016 15:15
[2016-09-19] MEDS: ACETAMINOPHEN 325 MG TAB PO PRN (15:16)
--- NOTE | 2016-09-19 16:59 | RADRPT ---
EXAM DATE/TIME: 09/19/2016 16:10 [facility] COMPARISON: CHEST SINGLE AP, September 16, 2016, 15:21. INDICATIONS : Cough and difficulty breathing. Infiltrtate per order. MEDICAL HISTORY : Hypertension. Hernia, hiatal. SURGICAL HISTORY : Cholecystectomy. Hysterectomy.Pacemaker. ENCOUNTER: Subsequent ACUITY: 3 days PAIN SCORE: 2/10 LOCATION: Bilateral chest FINDINGS: Pacemaker device is noted with control pack over the left chest. There has been interval development of bilateral pleural effusions. There is associated mild basilar parenchymal opacities. Visualized ca rdiac contours are grossly stable. CONCLUSION: Evolving bilateral effusions and basilar consolidative changes. Alhaji Douglas MD on September 19, 2016 at 16:56 Board Certified Radiologist. This report was verified electronically.
--- NOTE | 2016-09-19 17:04 | HHI.PR ---
Subjective Remarks Patient evaluated earlier today. She is here with her daughters. She states that she is a bit overwhelmed with everything. Apparently one of the daughters was told that pt was shocked during ERCP and family was very worried. I spoke w Dary Perales who investigated this and turns out that pt's pacemaker was interogated. I reassured family and told them about the interrogation of pacemaker. Pt states that she was very worried and is disappointed to find out that she will need to undergo another ERCP to remove the stent. otherwise she is feeling ok. NO CP/SOB/N/V Objective Vitals Vital Signs Date Time Temp Pulse Resp B/P Pulse Ox O2 Delivery O2 Flow Rate FiO2 09/19/16 15:56 97.0 80 18 100/68 95 09/19/16 12:00 96.5 67 18 119/59 94 09/19/16 10:04 94 21 09/19/16 08:00 96.1 68 18 112/55 93 09/19/16 04:00 96.3 60 17 113/58 94 09/19/16 02:09 66 09/19/16 00:00 96.9 71 16 116/56 98 09/18/16 20:00 97.7 71 17 138/61 97 I/O 09/18/16 09/18/16 09/18/16 09/19/16 09/19/16 09/19/16 07:00 15:00 23:00 07:00 15:00 23:00 Intake Total 631 ml 1682 ml 240 ml 240 ml 960 ml Output Total 100 ml Balance 631 ml 1582 ml 240 ml 240 ml 960 ml Intake Oral 240 ml 960 ml 240 ml 240 ml 960 ml IV Total 391 ml 422 ml Other 300 ml Output Urine Total 100 ml # Voids 2 3 1 3 4 # Bowel Movements 0 1 0 0 2 Result Diagram: 09/19/16 0612 09/19/16 0612 Imaging Last Impressions GI Procedure 09/18/16 0000 Signed Impressions: Service Date/Time: Sunday, September 18, 2016 10:34 - CONCLUSION: ERCP as above. Haris Partida MD Shoulder X-Ray 09/17/16 0000 Signed Impressions: Service Date/Time: Saturday, September 17, 2016 11:24 - CONCLUSION: Extensive degenerative changes without fracture. Chronic rotator cuff tear would be a consideration. Todd Partida MD FACR Chest X-Ray 09/16/16 1503 Signed Impressions: Service Date/Time: Friday, September 16, 2016 15:21 - CONCLUSION: No definite infiltrates seen. Increased prominence the elevation of the left hemidiaphragm. Stable cardiomegaly. John Quiles MD Hepatobiliary Scan Nuclear Medicine 09/16/16 0000 Signed Impressions: Service Date/Time: Friday, September 16, 2016 20:29 - CONCLUSION: There is no evidence of functional obstruction. Prompt data set uptake of radiotracer and normal rate of washout. John Quiles MD Abdomen/Pelvis CT 09/16/16 0000 Signed Impressions: Service Date/Time: Friday, September 16, 2016 17:14 - CONCLUSION: 1. The common bile duct is dilated up to 9 mm; this represents a change when compared to prior CT scan. May consider performing hepatobiliary tract scan to evaluate for evidence of functional obstruction. 2. There is a new wedge-shaped hypodensity in the inferior pole of the spleen suggesting splenic infarction. 3. Ascites in the left upper abdomen, right lower quadrant and in the pelvis. John Quiles MD Objective Remarks GENERAL: Well-nourished, well-developed patient. NECK: Supple, trachea midline. No JVD or lymphadenopathy. CARDIOVASCULAR: Regular rate and rhythm without murmurs RESPIRATORY: Breath sounds equal bilaterally. No accessory muscle use. GASTROINTESTINAL: Abdomen soft, non-tender, nondistended. EXTREMITIES: moves extremities well, able to sit up for me to examine her. A/P Assessment and Plan - Dilated bile duct on the CT, s/p ERCP w sphincterotomy/papillotomy balloon dilation w stent placement POD1 - HIDA scan 09/16 negative. - on IV zosyn, blood cx neg x 3 day except for one bottle growing staph epi most likely contaminant. Per GI ok to d/c zosyn. Urine cx growing E. Coli sensitive to nitrofurantoin, will switch to that - Appreciate GI recommendations,Pt will need ERCP in 12 weeks for stent removal. Sepsis WBC 11.1 this AM. pt afebrile off ivf.dc zosyn per GI recs (I did discuss this w Dary Perales) GERD - IV Pepcid twice a day Hypertension - on enestrto and lasix po. continue to hold metoprolol. BP's have been stable. Hyperlipidemia - continue to hold statin in the setting of elevated LFTs. May restart once cleared by GI Hypothyroidism - Continue Synthroid DVT GI prophylaxis - Lovenox and Pepcid Discharge Planning switching to po nitrofurantoin GI would like to repeat LFTs and reassess in AM. If trending down will d/c home tomorrow. Indira Lopez MD Sep 19, 2016 17:04
[2016-09-19] MEDS: NITROFURANTOIN MONOHYD MACROCR 100 MG CAP PO SCH (18:02)
[2016-09-19] MEDS: ENOXAPARIN SODIUM 30 MG/0.3 ML SYRINGE SQ SCH (20:13)
[2016-09-19] MEDS: LACTATED RINGER'S 1000 ML INJ 1,000 ML IV SCH (21:28)
[2016-09-20] VITALS (7 sets, daily range): BP systolic 124–144; BP diastolic 65–81; PULSE 18–94; RESP 16–18; TEMP 95.8–98.7; O2SAT 92–95
[2016-09-20] MEDS: CHLORHEXIDINE GLUCONATE 2 % 1 PACK (2 CLOTHS) TOP SCH (00:06)
[2016-09-20] MEDS: LEVOTHYROXINE SODIUM 100 MCG TAB PO SCH (05:04)
[2016-09-20] MEDS: ALPRAZolam 0.25 MG TAB PO PRN ×2 (06:26→16:10)
[2016-09-20] MEDS: ACETAMINOPHEN 325 MG TAB PO PRN ×2 (06:26→16:10)
[2016-09-20 07:15] LABS: AUTOMATED NEUTROPHIL # 7.6 TH/MM3 (1.8-7.7); BASOPHIL # 0.1 TH/MM3 (0-0.2); BASOPHIL % 0.9 % (0.0-2.0); EOSINOPHIL # 0.2 TH/MM3 (0-0.4); EOSINOPHIL % 1.9 % (0.0-4.0); HEMATOCRIT 39.6 % (35.0-46.0); HEMO FLAGS DIFF FINAL; LYMPH % 8.2 % (9.0-44.0); LYMPHOCYTE # 0.8 TH/MM3 (1.0-4.8); MEAN CELL VOLUME 97.3 FL (80.0-100.0); MEAN CORPUSCULAR HEMOGLOBIN 31.9 PG (27.0-34.0); MEAN CORPUSCULAR HGB CONC 32.8 % (32.0-36.0); MONO % 13.5 % (0.0-8.0); NEUT % 75.5 % (16.0-70.0); PLATELET COUNT 165 TH/MM3 (150-450); RED BLOOD COUNT 4.07 MIL/MM3 (4.00-5.30); RED CELL DISTRIBUTION WIDTH 15.6 % (11.6-17.2); WHITE BLOOD COUNT 10.1 TH/MM3 (4.0-11.0)
[2016-09-20 07:36] LABS: INDIRECT BILIRUBIN 1.1 MG/DL (0.0-0.8); TOTAL BILIRUBIN ADULT 2.1 MG/DL (0.2-1.0)
[2016-09-20] MEDS: DOCUSATE SODIUM 100 MG/10 ML UDC G-TUBE SCH ×2 (09:00→20:59)
[2016-09-20] MEDS: NITROFURANTOIN MONOHYD MACROCR 100 MG CAP PO SCH ×2 (10:04→17:03)
[2016-09-20] MEDS: FAMOTIDINE 20 MG/2 ML VIAL IV PUSH SCH ×2 (10:04→20:59)
[2016-09-20] MEDS: ASPIRIN EC 81 MG TABEC PO SCH (10:04)
[2016-09-20] MEDS: FUROSEMIDE 40 MG TAB PO SCH (10:04)
[2016-09-20] MEDS: SACUBITRIL/VALSARTAN 24 MG-26 MG TAB PO SCH ×3 (10:04→20:59)
[2016-09-20] MEDS: SODIUM CHLORIDE 0.9% FLUSH 10 ML FLUSH SCH ×2 (10:05→20:59)
--- NOTE | 2016-09-20 11:47 | HHI.PR ---
Subjective Remarks Pt states that she feels discouraged being in the hospital. She hopes to go home soon. Daughters at bedside. No nausea or vomiting. no CP/Palpitation/ lightheadedness or dizziness. She sees Dr. Gillis and Dr. Aranda put her pacemaker/defibrillator Objective Vitals Vital Signs Date Time Temp Pulse Resp B/P Pulse Ox O2 Delivery O2 Flow Rate FiO2 09/20/16 08:00 96.3 79 18 124/68 92 09/20/16 04:00 96.6 85 17 127/65 93 09/20/16 00:00 97.5 77 16 134/75 95 09/19/16 19:30 97.3 83 16 118/70 93 09/19/16 18:34 21 09/19/16 15:56 97.0 80 18 100/68 95 09/19/16 12:00 96.5 67 18 119/59 94 I/O 09/19/16 09/19/16 09/19/16 09/20/16 09/20/16 09/20/16 07:00 15:00 23:00 07:00 15:00 23:00 Intake Total 240 ml 960 ml 240 ml 240 ml Balance 240 ml 960 ml 240 ml 240 ml Intake Oral 240 ml 960 ml 240 ml 240 ml # Voids 3 4 2 1 # Bowel Movements 0 2 1 1 Result Diagram: 09/20/16 0609 09/19/16 0612 Imaging Last Impressions Chest X-Ray 09/19/16 0000 Signed Impressions: Service Date/Time: Monday, September 19, 2016 16:10 - CONCLUSION: Evolving bilateral effusions and basilar consolidative changes. Alhaji Douglas MD GI Procedure 09/18/16 0000 Signed Impressions: Service Date/Time: Sunday, September 18, 2016 10:34 - CONCLUSION: ERCP as above. Haris Partida MD Shoulder X-Ray 09/17/16 0000 Signed Impressions: Service Date/Time: Saturday, September 17, 2016 11:24 - CONCLUSION: Extensive degenerative changes without fracture. Chronic rotator cuff tear would be a consideration. Todd Partida MD FACR Hepatobiliary Scan Nuclear Medicine 09/16/16 0000 Signed Impressions: Service Date/Time: Friday, September 16, 2016 20:29 - CONCLUSION: There is no evidence of functional obstruction. Prompt data set uptake of radiotracer and normal rate of washout. John Quiles MD Abdomen/Pelvis CT 09/16/16 0000 Signed Impressions: Service Date/Time: Friday, September 16, 2016 17:14 - CONCLUSION: 1. The common bile duct is dilated up to 9 mm; this represents a change when compared to prior CT scan. May consider performing hepatobiliary tract scan to evaluate for evidence of functional obstruction. 2. There is a new wedge-shaped hypodensity in the inferior pole of the spleen suggesting splenic infarction. 3. Ascites in the left upper abdomen, right lower quadrant and in the pelvis. John Quiles MD Objective Remarks GENERAL: Well-nourished, well-developed patient. NECK: Supple, trachea midline. No JVD or lymphadenopathy. CARDIOVASCULAR: Regular rate and rhythm without murmurs RESPIRATORY: Breath sounds equal bilaterally. No accessory muscle use. GASTROINTESTINAL: Abdomen soft, non-tender, nondistended. EXTREMITIES: moves extremities well, able to sit up for me to examine her. A/P Assessment and Plan - Dilated bile duct on the CT, s/p ERCP w sphincterotomy/papillotomy balloon dilation w stent placement POD1 - HIDA scan 09/16 negative. - on IV zosyn, blood cx neg x 3 day except for one bottle growing staph epi most likely contaminant. Per GI off zosyn. Urine cx growing E. Coli sensitive to nitrofurantoin/macrobid, now on PO macrobid - Appreciate GI recommendations,Pt will need ERCP in 12 weeks for stent removal. Sepsis WBC 10.1 this AM. pt afebrile off ivf.dc zosyn per GI recs (I did discuss this w Dary Perales) Pacemaker/defib Pt was noted to have 20 beat run of Vtach on TELE. Pt had a couple short runs yesterday. She has been asymptomatic the entire time however because she is getting them more often today, I will go ahead and consult her entry level account representative. Appreciate assistance and recs. Pacemaker was interrogated post procedure and it was ok. GERD - IV Pepcid twice a day Hypertension - on enestrto and lasix po. continue to hold metoprolol. BP's have been stable. Hyperlipidemia - continue to hold statin in the setting of elevated LFTs. May restart once cleared by GI Hypothyroidism - Continue Synthroid DVT GI prophylaxis - Lovenox and Pepcid Discharge Planning on po macrobid awaiting final recs from GI and cards Indira Lopez MD Sep 20, 2016 11:47
[2016-09-20] MEDS: METOPROLOL TARTRATE 50 MG TAB PO SCH ×2 (16:01→20:59)
--- NOTE | 2016-09-20 16:41 | HHI.GIFU ---
Subjective Remarks Resting in bed. Feeling better. No n/v. Had a mild stomachache earlier today- this has since resolved. (Dary Perales) Objective Vitals I&O Vital Signs Date Time Temp Pulse Resp B/P Pulse Ox O2 Delivery O2 Flow Rate FiO2 09/20/16 15:30 98.7 18 18 131/68 94 09/20/16 14:37 94 09/20/16 12:00 95.8 89 18 144/81 92 09/20/16 08:00 96.3 79 18 124/68 92 09/20/16 04:00 96.6 85 17 127/65 93 09/20/16 00:00 97.5 77 16 134/75 95 09/19/16 19:30 97.3 83 16 118/70 93 09/19/16 18:34 21 I/O 09/19/16 09/19/16 09/19/16 09/20/16 09/20/16 09/20/16 07:00 15:00 23:00 07:00 15:00 23:00 Intake Total 240 ml 960 ml 240 ml 240 ml 960 ml Balance 240 ml 960 ml 240 ml 240 ml 960 ml Intake Oral 240 ml 960 ml 240 ml 240 ml 960 ml # Voids 3 4 2 1 4 # Bowel Movements 0 2 1 1 2 Laboratory Laboratory Tests Test 09/20/16 06:09 White Blood Count 10.1 Red Blood Count 4.07 Hemoglobin 13.0 Hematocrit 39.6 Mean Corpuscular Volume 97.3 Mean Corpuscular Hemoglobin 31.9 Mean Corpuscular Hemoglobin 32.8 Concent Red Cell Distribution Width 15.6 Platelet Count 165 Mean Platelet Volume 8.2 Neutrophils (%) (Auto) 75.5 Lymphocytes (%) (Auto) 8.2 Monocytes (%) (Auto) 13.5 Eosinophils (%) (Auto) 1.9 Basophils (%) (Auto) 0.9 Neutrophils # (Auto) 7.6 Lymphocytes # (Auto) 0.8 Monocytes # (Auto) 1.4 Eosinophils # (Auto) 0.2 Basophils # (Auto) 0.1 CBC Comment DIFF FINAL Differential Comment Total Bilirubin 2.1 Direct Bilirubin 1.0 Indirect Bilirubin 1.1 Aspartate Amino Transf 24 (AST/SGOT) Alanine Aminotransferase 34 (ALT/SGPT) Alkaline Phosphatase 114 Total Protein 6.3 Albumin 2.7 Date/Time Procedure Status Source Growth 09/16/16 20:26 Aerobic Blood Culture - Preliminary Resulted Blood Peripheral NO GROWTH IN 4 DAYS 09/16/16 20:26 Anaerobic Blood Culture - Preliminary Resulted Blood Peripheral NO GROWTH IN 4 DAYS 09/16/16 15:17 Urine Culture - Final Complete Urine Catheterized Urine Escherichia Coli 09/16/16 15:15 Aerobic Blood Culture - Final Resulted Blood Peripheral Staphylococcus Epidermidis 09/16/16 15:15 Anaerobic Blood Culture - Preliminary Resulted Blood Peripheral NO GROWTH IN 4 DAYS Imaging Last Impressions Chest X-Ray 09/19/16 0000 Signed Impressions: Service Date/Time: Monday, September 19, 2016 16:10 - CONCLUSION: Evolving bilateral effusions and basilar consolidative changes. Alhaji Douglas MD GI Procedure 09/18/16 0000 Signed Impressions: Service Date/Time: Sunday, September 18, 2016 10:34 - CONCLUSION: ERCP as above. Haris Partida MD Shoulder X-Ray 09/17/16 0000 Signed Impressions: Service Date/Time: Saturday, September 17, 2016 11:24 - CONCLUSION: Extensive degenerative changes without fracture. Chronic rotator cuff tear would be a consideration. Todd Partida MD FACR Hepatobiliary Scan Nuclear Medicine 09/16/16 0000 Signed Impressions: Service Date/Time: Friday, September 16, 2016 20:29 - CONCLUSION: There is no evidence of functional obstruction. Prompt data set uptake of radiotracer and normal rate of washout. John Quiles MD Abdomen/Pelvis CT 09/16/16 0000 Signed Impressions: Service Date/Time: Friday, September 16, 2016 17:14 - CONCLUSION: 1. The common bile duct is dilated up to 9 mm; this represents a change when compared to prior CT scan. May consider performing hepatobiliary tract scan to evaluate for evidence of functional obstruction. 2. There is a new wedge-shaped hypodensity in the inferior pole of the spleen suggesting splenic infarction. 3. Ascites in the left upper abdomen, right lower quadrant and in the pelvis. John Quiles MD Physical Exam HEENT: Normocephalic; atraumatic; no jaundice. CHEST: CTA CARDIAC: RRR ABDOMEN: Soft, nondistended, nontender; no hepatosplenomegaly; bowel sounds are present in all four quadrants. EXTREMITIES: No clubbing, cyanosis, or edema. SKIN: Normal; no rash; no jaundice. CARE TRANSITION MGR: No focal deficits; alert and oriented times three. (Dary Perales) Assessment and Plan Plan ASSESSMENT: - CBD stricture. S/P ERCP with balloon sweep, stent placement, and sphincterotomy (09/18/16)-----> 1. Sphincterotomy performed, and balloon sweeps x 2. 8.5 fr x 9 cm silastic stent placed 2. Stricture in the distal common bile duct. Rpt. BCx no growth 3 days. S/P Zosyn. PPI. LFT T. Bili 2.1, AST 24, ALT 34, Alk Phosph 114. Tolerating diet. No abdominal pain. -Nausea, vomiting-Resolved. Patient continues to have decreased appetite, but no abdominal pain. Abdomen/Pelvis CT 09/16/16 1. The common bile duct is dilated up to 9 mm; this represents a change when compared to prior CT scan. May consider performing hepatobiliary tract scan to evaluate for evidence of functional obstruction. 2. There is a new wedge-shaped hypodensity in the inferior pole of the spleen suggesting splenic infarction. 3. Ascites in the left upper abdomen, right lower quadrant and in the pelvis. Hepatobiliary Scan Nuclear Medicine 09/16/16 There is no evidence of functional obstruction. Prompt data set uptake of radiotracer and normal rate of washout. -GERD. PPI - Leukocytosis/UTI. S/P abx. - HTN, Hyperlipidemia, Hypothyroidism,per primary PLAN: - NELSON - PPI - Will need repeat ERCP in 3 months with stent exchange/removal- d/w patient and family - GI will sign off, please reconsult as needed - Pt seen and examined by Dr. Jones and myself and this note is written on his behalf (Dary Perales) Physician Comments Seen and examined with [employer]ER, s/p ercp/stent . Doing well, monitor LFTs. Gi will sign off, reconsult as needed. Thank you (Devonte Bartholomew MD) Dary Perales Sep 20, 2016 16:41 Devonte Bartholomew MD Sep 20, 2016 18:59
--- NOTE | 2016-09-20 17:24 | MB ---
cc: CARMELITA FORMAN DATE OF CONSULTATION: 09/20/2016 REASON FOR CONSULTATION: Wide complex tachycardia. HISTORY OF PRESENT ILLNESS The patient is an 81-year-old white female, followed in our office by Dr. Raman Gillis, with a history of severe nonischemic cardiomyopathy status post biventricular AICD implant, gastroesophageal reflux disease, hyperlipidemia, hypertension, who presented to the hospital with generalized weakness, nausea, vomiting. She is now one day status post ERCP with balloon sweep, stent placement, sphincterotomy. Since the procedure she has felt somewhat better with less nausea, although she continues to feel generally weak. Here in hospital monitoring has revealed wide complex tachycardia, nonsustained. She denies palpitations, dizziness, syncope, near-syncope, chest pain, shortness of breath, paroxysmal nocturnal dyspnea, pedal edema. Her appetite continues to be decreased although improved. PAST MEDICAL HISTORY 1. Severe nonischemic cardiomyopathy with ejection fraction of 25-30% by echo 04/20/2016. She reportedly had a normal cardiac catheterization 2006. She is also status post electrophysiology study 06/26/2016 which was negative for inducible supraventricular tachycardia. She underwent placement of a biventricular Biotronik AICD 06/26/[address] Otf Aranda. 2. Hypertension 3. Hyperlipidemia. 4. Gastroesophageal reflux disease. 5. History of renolithiasis. CARDIAC MEDICATIONS AT HOME: 1. Metoprolol 50 mg b.i.d. 1. Entresto one b.i.d. 2. Ecotrin 81 mg daily. 3. Furosemide 40 mg daily. 4. Lovastatin 40 mg daily. 5. Potassium chloride 10 milliequivalents qd. ALLERGIES NO KNOWN DRUG ALLERGIES. FAMILY HISTORY Noncontributory. SOCIAL HISTORY The patient quit smoking in 1988. She denies alcohol abuse. REVIEW OF SYSTEMS: As in the history of present illness otherwise negative or noncontributory. PHYSICAL EXAMINATION: On physical examination her blood pressure 124/68 with a pulse of 94, respiratory rate 18. General: She is a well-developed thin white female in no acute distress. HEENT examination: Jugular venous pressure is normal. Carotid pulses are 2+ bilaterally and without bruits. Chest: Examination of the chest reveals clear lung mendiola. Cardiac: She has a regular rhythm and rate without S3-S4 or murmur. Abdomen: She has a soft, nontender abdomen. Bowel sounds are present. There is no definite hepatosplenomegaly. Extremities: Reveals no clubbing, cyanosis or edema. LABORATORY DATA: Laboratory data includes WBC 10.1, hemoglobin 13.0, platelets 165, potassium 3.7, BUN 9, creatinine 0.76, AST 24, ALT 34, total bilirubin 2.1. EKG from 09/16/2016, shows ventricular paced rhythm with atrial sensing. IMPRESSION Rare nonsustained wide complex tachycardia without any associated cardiac symptoms in this 81-year-old white female with a history of severe nonischemic cardiomyopathy, ejection fraction 25-30%, status post biventricular AICD implant. Her numerous hospital rhythm strips have been reviewed. She does have two episodes of wide complex tachycardia up to 20 beats in duration. She has been asymptomatic. The patient reports no AICD shocks. There has been no evidence for antitachycardia pacing. The patient has not been receiving her beta ryan as far as I can tell. RECOMMENDATIONS 1. Resume her oral metoprolol. 2. Would try to maintain her potassium greater than 4.0 and her magnesium greater than 2.0. 3. Will follow up as needed. MD DEL Cross/[place] /2:42 PM /4:48 PM MTDD
[2016-09-20] MEDS: ENOXAPARIN SODIUM 30 MG/0.3 ML SYRINGE SQ SCH (20:59)
[2016-09-20] MEDS: LACTATED RINGER'S 1000 ML INJ 1,000 ML IV SCH (21:23)
[2016-09-21] VITALS (8 sets, daily range): BP systolic 115–138; BP diastolic 59–78; PULSE 60–88; RESP 16–34; TEMP 96–101.3; O2SAT 91–97
[2016-09-21] MEDS: CHLORHEXIDINE GLUCONATE 2 % 1 PACK (2 CLOTHS) TOP SCH (01:31)
[2016-09-21] MEDS: METOCLOPRAMIDE HCL 10 MG/2 ML VIAL IV PRN (02:24)
[2016-09-21] MEDS: ACETAMINOPHEN 325 MG TAB PO PRN (03:01)
[2016-09-21] MEDS: RESP: ALBUTEROL 2.5 MG/IPRATROPIUM 0.5 MG NEB (PRN) INH ×2 (03:20→11:05)
[2016-09-21] MEDS: LEVOTHYROXINE SODIUM 100 MCG TAB PO SCH (04:12)
[2016-09-21] MEDS: SACUBITRIL/VALSARTAN 24 MG-26 MG TAB PO SCH ×3 (09:00→22:39)
[2016-09-21] MEDS: ASPIRIN EC 81 MG TABEC PO SCH (10:03)
[2016-09-21] MEDS: FUROSEMIDE 40 MG TAB PO SCH (10:03)
[2016-09-21] MEDS: METOPROLOL TARTRATE 50 MG TAB PO SCH ×2 (10:03→22:39)
[2016-09-21] MEDS: DOCUSATE SODIUM 100 MG/10 ML UDC G-TUBE SCH ×2 (10:03→22:38)
[2016-09-21] MEDS: NITROFURANTOIN MONOHYD MACROCR 100 MG CAP PO SCH (10:03)
[2016-09-21] MEDS: FAMOTIDINE 20 MG/2 ML VIAL IV PUSH SCH ×2 (10:09→22:37)
[2016-09-21] MEDS: SODIUM CHLORIDE 0.9% FLUSH 10 ML FLUSH SCH ×2 (10:10→22:38)
[2016-09-21 11:02] LABS: BASOPHIL # 0.1 TH/MM3 (0-0.2); BASOPHIL % 1.3 % (0.0-2.0); EOSINOPHIL % 0.2 % (0.0-4.0); HEMATOCRIT 37.4 % (35.0-46.0); HEMO FLAGS DIFF FINAL; LYMPH % 4.5 % (9.0-44.0); LYMPHOCYTE # 0.3 TH/MM3 (1.0-4.8); MEAN CELL VOLUME 96.6 FL (80.0-100.0); MEAN CORPUSCULAR HEMOGLOBIN 32.3 PG (27.0-34.0); MEAN CORPUSCULAR HGB CONC 33.4 % (32.0-36.0); MONO % 10.7 % (0.0-8.0); NEUT % 83.3 % (16.0-70.0); PLATELET COUNT 192 TH/MM3 (150-450); RED BLOOD COUNT 3.87 MIL/MM3 (4.00-5.30); RED CELL DISTRIBUTION WIDTH 15.8 % (11.6-17.2); WHITE BLOOD COUNT 7.2 TH/MM3 (4.0-11.0)
[2016-09-21 11:24] LABS: ALKALINE PHOSPHATASE 163 U/L (45-117); ALT (GPT) 36 U/L (10-53); ANION GAP 10 MEQ/L (5-15); AST (GOT) 51 U/L (15-37); BICARBONATE 28.2 MEQ/L (21.0-32.0); BLOOD UREA NITROGEN 10 MG/DL (7-18); CHLORIDE 99 MEQ/L (98-107); GLOMERULAR FILTRATION RATE 52 ML/MIN (>89); POTASSIUM 3.9 MEQ/L (3.5-5.1); SODIUM (NA) 137 MEQ/L (136-145); TOTAL BILIRUBIN ADULT 1.9 MG/DL (0.2-1.0)
--- NOTE | 2016-09-21 15:12 | RADRPT ---
EXAM DATE/TIME: 09/21/2016 12:23 [place] COMPARISON: No previous studies available for comparison. INDICATIONS : Short of breath MEDICAL HISTORY : Hypertension. Hiatal hernia. SURGICAL HISTORY : Cholecystectomy. Hysterectomy. Pacemaker. ENCOUNTER: Subsequent ACUITY: 4 - 6 days PAIN SCORE: 0/10 LOCATION: chest FINDINGS: Cardiac pacer box obscures the left lower lobe. 3 pacer leads are seen including AICD. No blunting of the costophrenic angles. The heart is mildly enlarged with panchamber configuration. Biliary sarah nt in place. Calcified hilar lymph nodes bilaterally. CONCLUSION: No focal infiltrates seen. No evidence of pleural effusion. John Quiles MD on September 21, 2016 at 15:09 Board Certified Radiologist. This report was verified electronically.
--- NOTE | 2016-09-21 15:33 | HHI.PR ---
Subjective Remarks Patient was evaluated earlier today. Patient states she feels much better today. She is hopeful to go home soon. Denies any chest pain, shortness of breath, nausea or vomiting. She had a fever last night but hasn't had one since. She denies any chills at this time Objective Vitals Vital Signs Date Time Temp Pulse Resp B/P Pulse Ox O2 Delivery O2 Flow Rate FiO2 09/21/16 09:55 Nasal Cannula 2.00 21 09/21/16 08:00 96.2 68 16 138/68 92 09/21/16 04:21 97.6 77 17 130/59 91 09/21/16 04:05 95 Nasal Cannula 2.00 09/21/16 02:50 101.3 88 18 124/78 95 09/21/16 01:58 99.6 09/21/16 00:31 96.0 71 17 118/69 94 09/20/16 19:30 96.4 72 18 126/74 93 I/O 09/20/16 09/20/16 09/20/16 09/21/16 09/21/16 09/21/16 07:00 15:00 23:00 07:00 15:00 23:00 Intake Total 240 ml 960 ml 480 ml 360 ml Balance 240 ml 960 ml 480 ml 360 ml Intake Oral 240 ml 960 ml 480 ml 360 ml # Voids 1 4 4 3 # Bowel Movements 1 2 0 1 Result Diagram: 09/21/16 1045 09/21/16 1045 Imaging Last Impressions Chest X-Ray 09/21/16 0000 Signed Impressions: Service Date/Time: September 12:23 - CONCLUSION: No focal infiltrates seen. No evidence of pleural effusion. John Quiles MD GI Procedure 09/18/16 0000 Signed Impressions: Service Date/Time: Sunday, September 18, 2016 10:34 - CONCLUSION: ERCP as above. Haris Partida MD Shoulder X-Ray 09/17/16 0000 Signed Impressions: Service Date/Time: Saturday, September 17, 2016 11:24 - CONCLUSION: Extensive degenerative changes without fracture. Chronic rotator cuff tear would be a consideration. Todd Partida MD FACR Hepatobiliary Scan Nuclear Medicine 09/16/16 0000 Signed Impressions: Service Date/Time: Friday, September 16, 2016 20:29 - CONCLUSION: There is no evidence of functional obstruction. Prompt data set uptake of radiotracer and normal rate of washout. John Quiles MD Abdomen/Pelvis CT 09/16/16 0000 Signed Impressions: Service Date/Time: Friday, September 16, 2016 17:14 - CONCLUSION: 1. The common bile duct is dilated up to 9 mm; this represents a change when compared to prior CT scan. May consider performing hepatobiliary tract scan to evaluate for evidence of functional obstruction. 2. There is a new wedge-shaped hypodensity in the inferior pole of the spleen suggesting splenic infarction. 3. Ascites in the left upper abdomen, right lower quadrant and in the pelvis. John Quiles MD Objective Remarks GENERAL: Well-nourished, well-developed patient. CARDIOVASCULAR: Regular rate and rhythm without murmurs RESPIRATORY: Breath sounds equal bilaterally. No accessory muscle use. GASTROINTESTINAL: Abdomen soft, non-tender, nondistended. A/P Assessment and Plan - Dilated bile duct on the CT, s/p ERCP w sphincterotomy/papillotomy balloon dilation w stent placement POD1 - HIDA scan 09/16 negative. - on IV zosyn, blood cx neg x 3 day except for one bottle growing staph epi most likely contaminant. Per GI off zosyn. Urine cx growing E. Coli sensitive to nitrofurantoin/macrobid, however due to her kidney function/creatinine clearance we'll switch her to Augmentin whichit is sensitive to. - Appreciate GI recommendations,Pt will need ERCP in 12 weeks for stent removal. Sepsis WBC down to 7.2 today. Patient had one episode of fever of 101.1 however this was not reported to the overnight team will check chest x-ray and repeat UA off ivf zosyn per GI recs (I did discuss this w Dary Perales) Pacemaker/defib Pt was noted to have 20 beat run of Vtach on TELE. Pt had a couple short runs as well. She has been asymptomatic the entire time. Cardiology evaluated the patient and recommended restarting her metoprolol. GERD - IV Pepcid twice a day Hypertension - on enestrto and lasix po. continue to hold metoprolol. BP's have been stable. Hyperlipidemia - continue to hold statin in the setting of elevated LFTs. May restart once cleared by GI Hypothyroidism - Continue Synthroid DVT GI prophylaxis - Lovenox and Pepcid Discharge Planning Patient is clinically doing a lot better since admission. She had one episode of fever overnight and hasn't had one since. I have switched her antibiotic to Augmentin for the UTI due to her creatinine clearance. Chest x-ray did not show any infiltrates and repeat UA was clear. All day patient hasn't had any fevers. We'll monitor overnight and if she is afebrile she can be discharged home on Augmentin for her UTI. However, if patient spikes another fever, will obtain blood cultures and restart IV antibiotics. Indira Lopez MD Sep 21, 2016 15:33
[2016-09-21 16:24] LABS: BACTERIA, URINE RARE /hpf; BLOOD, URINE NEG (NEG); COMMENT (UR) CULT NOT INDICATED; CULTURE IF INDICATED CULT NOT INDICATED; GLUCOSE,URINE NEG (NEG); HYALINE CAST, URINE 2 /lpf (RARE); KETONE, URINE NEG (NEG); NITRITE,URINE NEG (NEG); PH, URINE 5.5 (5.0-8.5); SQUAMOUS EPITHELIAL CELL URINE <1 /hpf (0-5); URINE COLOR YELLOW (YELLW/STRAW)
[2016-09-21] MEDS: AMOXICILLIN/CLAVULANATE K 500 MG TAB PO SCH (17:30)
[2016-09-21] MEDS: ALPRAZolam 0.25 MG TAB PO PRN (19:29)
[2016-09-21] MEDS: ENOXAPARIN SODIUM 30 MG/0.3 ML SYRINGE SQ SCH (22:35)
[2016-09-22] MEDS: AMOXICILLIN/CLAVULANATE K 500 MG TAB PO SCH ×2 (00:12→09:17)
[2016-09-22 00:25] VITALS: BP 112/65; PULSE 64; RESP 17; TEMP 96; O2SAT 95
[2016-09-22 04:29] VITALS: BP 129/73; PULSE 65; RESP 16; TEMP 96.3; O2SAT 96
[2016-09-22] MEDS: CHLORHEXIDINE GLUCONATE 2 % 1 PACK (2 CLOTHS) TOP SCH (05:00)
[2016-09-22] MEDS: LEVOTHYROXINE SODIUM 100 MCG TAB PO SCH (06:06)
[2016-09-22 06:29] VITALS: BP 88/59; PULSE 71; RESP 17; TEMP 97.8; O2SAT 97
[2016-09-22] MEDS: ALPRAZolam 0.25 MG TAB PO PRN (06:31)
[2016-09-22 09:00] VITALS: BP 143/77; PULSE 77; RESP 24; TEMP 96.2; O2SAT 96
[2016-09-22] MEDS: SACUBITRIL/VALSARTAN 24 MG-26 MG TAB PO SCH (09:18)
[2016-09-22] MEDS: METOPROLOL TARTRATE 50 MG TAB PO SCH (09:18)
[2016-09-22] MEDS: ASPIRIN EC 81 MG TABEC PO SCH (09:18)
[2016-09-22] MEDS: FUROSEMIDE 40 MG TAB PO SCH (09:18)
[2016-09-22] MEDS: FAMOTIDINE 20 MG/2 ML VIAL IV PUSH SCH (09:18)
[2016-09-22] MEDS: DOCUSATE SODIUM 100 MG/10 ML UDC G-TUBE SCH (09:19)
[2016-09-22] MEDS: SODIUM CHLORIDE 0.9% FLUSH 10 ML FLUSH SCH (09:19)
[2016-09-22] MEDS: ACETAMINOPHEN 325 MG TAB PO PRN (09:30)
[2016-09-22] MEDS: RESP: ALBUTEROL 2.5 MG/IPRATROPIUM 0.5 MG NEB (PRN) INH (09:42)
[2016-09-22 09:43] VITALS: O2SAT 93
--- NOTE | 2016-09-22 11:17 | HHI.DS ---
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 She has not been feeling well for past 3-4 days. She was brought in by EMS because her daughter called 911. Her temperature in the emergency department was 100.8. She has been vomiting but no diarrhea. She did not vomit today or yesterday. Her appetite has been diminished but denied of any pain anywhere. No history of cough. Vital signs otherwise was within normal limits. CT of the abdomen shows the common bile duct dilation up to 9 mm; CBC/BMP: 09/21/16 1045 09/21/16 1045 Significant Findings Laboratory Tests Test 09/20/16 09/21/16 09/21/16 06:09 10:45 14:52 Neutrophils (%) (Auto) 75.5 % 83.3 % (16.0-70.0) (16.0-70.0) Lymphocytes (%) (Auto) 8.2 % 4.5 % (9.0-44.0) (9.0-44.0) Monocytes (%) (Auto) 13.5 % 10.7 % (0.0-8.0) (0.0-8.0) Lymphocytes # (Auto) 0.8 TH/MM3 0.3 TH/MM3 (1.0-4.8) (1.0-4.8) Monocytes # (Auto) 1.4 TH/MM3 (0-0.9) Total Bilirubin 2.1 MG/DL 1.9 MG/DL (0.2-1.0) (0.2-1.0) Direct Bilirubin 1.0 MG/DL (0.0-0.2) Indirect Bilirubin 1.1 MG/DL (0.0-0.8) Total Protein 6.3 GM/DL 6.3 GM/DL (6.4-8.2) (6.4-8.2) Albumin 2.7 GM/DL 2.6 GM/DL (3.4-5.0) (3.4-5.0) Red Blood Count 3.87 MIL/MM3 (4.00-5.30) Creatinine 1.02 MG/DL (0.50-1.00) Estimat Glomerular Filtration 52 ML/MIN (>89) Rate Calcium Level 8.4 MG/DL (8.5-10.1) Aspartate Amino Transf 51 U/L (15-37) (AST/SGOT) Alkaline Phosphatase 163 U/L (45-117) Urine Bacteria RARE /hpf (NONE) Imaging Last Impressions Chest X-Ray 09/21/16 0000 Signed Impressions: Service Date/Time: September 12:23 - CONCLUSION: No focal infiltrates seen. No evidence of pleural effusion. John Quiles MD GI Procedure 09/18/16 0000 Signed Impressions: Service Date/Time: Sunday, September 18, 2016 10:34 - CONCLUSION: ERCP as above. Haris Partida MD Shoulder X-Ray 09/17/16 0000 Signed Impressions: Service Date/Time: Saturday, September 17, 2016 11:24 - CONCLUSION: Extensive degenerative changes without fracture. Chronic rotator cuff tear would be a consideration. Todd Partida MD FACR Hepatobiliary Scan Nuclear Medicine 09/16/16 0000 Signed Impressions: Service Date/Time: Friday, September 16, 2016 20:29 - CONCLUSION: There is no evidence of functional obstruction. Prompt data set uptake of radiotracer and normal rate of washout. John Quiles MD Abdomen/Pelvis CT 09/16/16 0000 Signed Impressions: Service Date/Time: Friday, September 16, 2016 17:14 - CONCLUSION: 1. The common bile duct is dilated up to 9 mm; this represents a change when compared to prior CT scan. May consider performing hepatobiliary tract scan to evaluate for evidence of functional obstruction. 2. There is a new wedge-shaped hypodensity in the inferior pole of the spleen suggesting splenic infarction. 3. Ascites in the left upper abdomen, right lower quadrant and in the pelvis. John Quiles MD PE at Discharge GENERAL: Well-nourished, well-developed patient. CARDIOVASCULAR: Regular rate and rhythm without murmurs RESPIRATORY: Breath sounds equal bilaterally. No accessory muscle use. GASTROINTESTINAL: Abdomen soft, non-tender, nondistended. Pt update on day of discharge Patient afebrile overnight. Discussed with RN. She had an episode of tachypnea earlier attributed to anxiety. Back to baseline after receiving Xanax. I discussed with the patient's daughter at bedside at length. The patient is deconditioned and requires supplemental oxygen. Daughter reports they have oxygen at home and the patient has multiple children at home who will help take care of her and work to improve her physical activity. They believe she will do better at home. Hospital Course 81-year-old female admitted and treated for the following: Common bile duct stricture: - Dilated bile duct on the CT, s/p ERCP w sphincterotomy/papillotomy balloon dilation w stent placement - HIDA scan 09/16 negative. - Appreciate GI recommendations,Pt will need ERCP in 12 weeks for stent removal. Sepsis: -Patient initially treated with IV zosyn, blood cx neg x 3 day except for one bottle growing staph epi most likely contaminant. Urine cx growing E. Coli. Patient is discharged on Augmentin to complete the treatment. Pacemaker/defib Pt was noted to have 20 beat run of Vtach on TELE. Pt had a couple short runs as well. She has been asymptomatic the entire time. Cardiology evaluated the patient and recommended restarting her metoprolol. GERD - IV Pepcid twice a day Hypertension - on entresto and Lasix po. Hyperlipidemia -Statins were initially held due to elevation of LFTs. Statin resumed on discharge. Hypothyroidism - Continue Synthroid Pt Condition on Discharge: Stable Discharge Disposition: Discharge Home Discharge Time: <= 30 minutes Discharge Instructions DIET: Follow Instructions for: Heart Healthy Diet Activities you can perform: See Additionl Instruction Other Activity Instructions: Use assistance. Follow PT instructions. Follow up Referrals: Gastroenterology - 2 Weeks with Devonte Bartholomew MD Call for appointment Referral - 1 Week with Call PCP for appointment New Medications: Amoxicillin-Clavulanate (Augmentin) 500-125 mg Tab 500 MG PO Q8H Days 5 TAB Continued Medications: Alprazolam (Xanax) 0.25 Mg Tab 0.25 MG PO BID PRN ANXIETY Ref [address] (Jolly Aspirin EC Low Dose) 81 Mg Tabdr 81 MG PO DAILY Benzonatate (Tessalon Perles) 100 Mg Cap 100 MG PO TID PRN COUGH Ref 0 CAP Fluticasone Nasal Mims (Fluticasone Nasal Mims) 50 Mcg/Act Naspr 50 MCG EACH NARE DAILY 50 mcg/spray Allergy Management #1 Ref 0 BOTTLE Furosemide (Lasix) 20 Mg Tab 40 MG PO DAILY #30 Ref 0 TAB Levothyroxine (Levothyroxine) 100 Mcg Tab 100 MCG PO DAILY Thyroid #30 Ref 0 TAB Lovastatin (Lovastatin) 40 Mg Tab 40 MG PO DAILY Cholesterol Management #30 Ref 0 TAB Metoprolol Tartrate (Metoprolol Tartrate) 50 Mg Tab 50 MG PO BID heart failure #60 Ref 6 TAB Ondansetron (Zofran) 4 Mg Tab 4 MG PO Q6HR PRN NAUSEA OR VOMITING Ref 0 TAB Potassium Chloride ER (Potassium Chloride ER) 10 Meq Cap 10 MEQ PO DAILY Take with food Electrolyte Replacement #30 Ref 0 CAP Sacubitril-Valsartan (Entresto) 24-26 Mg Tab 1 TAB PO BID Heart Failure #30 Ref 0 TAB Obie Massey MD Sep 22, 2016 11:17
--- NOTE | 2016-09-22 11:19 | HHI.DCPOC ---
Discharge Care Plan Diagnosis: (1) Common bile duct (CBD) stricture (2) Sepsis (3) UTI (urinary tract infection) (4) Hypothyroidism Goals to Promote Your Health * To prevent worsening of your condition and complications * To maintain your health at the optimal level Directions to Meet Your Goals Take your medications as prescribed Follow your dietary instruction Follow activity as directed Keep your appointments as scheduled Take your immunizations and boosters as scheduled If your symptoms worsen call your PCP, if no PCP go to Urgent Care Center or Emergency Room Smoking is Dangerous to Your Health. Avoid second hand smoke Call the 24-hour hour crisis hotline for domestic abuse at Obie Massey MD Sep 22, 2016 11:19
[2016-09-22] MEDS ORDERED: AUGM500T7 PO (11:24)
[2016-09-22 12:00] VITALS: BP 132/66; PULSE 61; RESP 20; TEMP 95.9; O2SAT 93
== END 2016-09-22 14:33 | disposition home or self-care (01) | DRG 871 ==
LOC: NEPA 14:52 → NEDA 20:02 → HIME 22:00 → N06A 09-17 12:03
PROVIDERS: ADMIT Family Medicine; ATTEND Family Medicine
PROC: BF111ZZ Fluoroscopy of Biliary and Pancreatic Ducts using Low Osmolar Contrast (ICD-10-PCS; 2016-09-18)
PROC: 4B02XTZ Measurement of Cardiac Defibrillator, External Approach (ICD-10-PCS; 2016-09-18)
PROC: 0F798DZ Dilation of Common Bile Duct with Intraluminal Device, Via Natural or Artificial Opening Endoscopic (ICD-10-PCS; principal; 2016-09-18 09:55)
DX: A41.9 Sepsis, unspecified organism (principal); K83.1 Obstruction of bile duct; I47.2 Ventricular tachycardia; R18.8 Other ascites; I50.9 Heart failure, unspecified; I42.9 Cardiomyopathy, unspecified; R63.0 Anorexia; N39.0 Urinary tract infection, site not specified; E78.5 Hyperlipidemia, unspecified; E03.9 Hypothyroidism, unspecified; D73.5 Infarction of spleen; K44.9 Diaphragmatic hernia without obstruction or gangrene; K21.9 Gastro-esophageal reflux disease without esophagitis; I10 Essential (primary) hypertension; F41.9 Anxiety disorder, unspecified; F32.9 Major depressive disorder, single episode, unspecified; I25.10 Atherosclerotic heart disease of native coronary artery without angina pectoris; R05 Cough; Z91.013 Allergy to seafood; Z95.810 Presence of automatic (implantable) cardiac defibrillator; Z87.891 Personal history of nicotine dependence
CPT/HCPCS: 71010; 71020; 73030; 74177; 74330; 78226; 80048; 80053; 80076; 81001; 82948; 83605; 83735; 84100; 85007; 85025; 85027; 87040; 87077; 87086; 87186; 87641; 93005; 94640; 94664; 96361; 96365; 96367; A9537; C1769; C2625; J0610; J1610; J1650; J2405; J2543; J2765; J3010; J3370; J3475; J3480; J7030; J7050; J7613; Q9967